=== PATIENT | male | born 1995 | race Caucasian/White ===

== ENCOUNTER 2018-11-11 14:02 | Emergency (ER) | payer SELFPAY ==
[2018-11-11 14:03] VITALS: BP 127/51; PULSE 54; RESP 16; TEMP 36.9; O2SAT 99; BMI 16.1
--- NOTE | 2018-11-11 14:22 | ED.DCSUM_ITS ---
History of Present Illness Chief Complaint: Shortness of Breath Informant: Patient Onset: Days Timing: Intermittent Quality: Shortness of breath Location: Respiratory Current Severity: Mild Maximum Severity: Moderate Worsened by: Nothing Relieved by: None Associated Symptoms: no associated symptoms Narrative: Patient is 23-year-old male who is a smoker of half pack per day who presents with shortness of breath. He has history of asthma. He denies rhinorrhea, con gestion, postnasal drainage. No sore throat. Does have a cough occasionally. Cough is nonproductive. Patient has history of asthma. He does not recall last time he required treatment in the emergency department. He does not have a position. He does not have an inhaler. He denies leg pain, swelling or discoloration. He denies history of PE or DVT. Prior similar symptoms: Yes Recent Illness/Hospitalization: No - Past Medical History (1) History of asthma Status: Acute Past Medical History - Allergies and Home Meds Allergies/Adverse Reactions: Allergies Penicillins Allergy (Verified 11/11/18 14:03) Shortness of breath Primary Care Physician: Care Physician,No Primary [Primary Care Provider] - Prior records reviewed: No - There are none Surgical History: no surgical history Lives: Alone Smoking Status: Current every day smoker Alcohol: None Drugs: None Review of Systems General: Denies: Chills, Fever, Malaise, Sweats ENT: Denies: Bilateral ear pain, Rhinorrhea, Sore throat Cardiovascular: Denies: Chest pain, Palpitations Respiratory: Reports: Dyspnea, Cough. Denies: Sputum, Dyspnea on exertion, Orthopnea, Paroxysmal nocturnal dyspnea Gastrointestinal: Denies: Nausea, Vomiting Musculoskeletal: Denies: Myalgias, Arthralgias, Neck pain, Back pain, Swelling, Extremity Pain, -, - Skin: Denies: Rash, Wounds Allergy: Denies: Uticaria, Swelling of the mouth Physical Exam Vital Signs/Narrative: Vital Signs Temp Pulse Resp BP Pulse Ox 11/11/18 14:03 98.4 F 54 L 16 127/51 H 99 Inital Vital Signs reviewed: Yes General: Well nourished, Well developed, No Acute Distress Head: Normocephalic, Atraumatic Eyes: Perrl, EOMI. Negative for: Pale conjunctiva, Scleral icterus ENT: Moist mucous membranes, No rhinorrhea, TM's clear Neck: Supple, Nontender Cardiovascular: Regular rate, Regular rhythm, No murmurs, Normal S1, Normal S2 Respiratory: No distress, CTA bilaterally, Chest nontender Abdomen: Soft, Nontender, Nondistended, Normal bowel sounds Back: Nontender, Normal Inspection Extremities: Nontender, No edema Skin: Normal color, No rash Neurological: Alert, Oriented x3, Cranial nerves II-XII grossly intact, Normal Strength, Normal Sensation Psychological: Normal affect, Normal Mood Diagnostic/Tx/Re-eval - Medical Decision Making Since exam is unremarkable. Patient is PERC negative. Will write prescription for inhaler since he is presently not wheezing and his vital signs are normal. ED Disposition - Plan for ED Patient: Disposition: Home or Assisted Living Diagnosis: Dyspnea, History of asthma Instructions: ED Dyspnea Prescriptions: Albuterol Inhaler [Ventolin Hfa] 2 puff INHALATION Q4H PRN PRN #1 inhaler PRN Reason: Wheezing Prescription Printed Referrals: Care Physician,No Primary [Primary Care Provider] - Moon Elias [NON-STAFF] - As Needed
== END 2018-11-11 14:46 | disposition home or self-care (01) ==
LOC: ED 14:40
PROVIDERS: Emergency Provider Emergency Medicine
DX: R06.09 Other forms of dyspnea (principal); J45.909 Unspecified asthma, uncomplicated; F17.200 Nicotine dependence, unspecified, uncomplicated; Z79.51 Long term (current) use of inhaled steroids
CPT/HCPCS: 99282

== ENCOUNTER 2019-06-08 08:34 | Emergency (ER) | payer MEDICAID, SELFPAY ==
[2019-06-08 08:35] VITALS: BP 120/80; PULSE 52; RESP 14; TEMP 37.1; O2SAT 100; BMI 15.7
--- NOTE | 2019-06-08 08:45 | ED.VIS.GEN ---
History of Present Illness Chief Complaint: Asthma Informant: Patient Onset: Today Context: Gradual Onset Timing: Continuous Current Severity: Moderate Maximum Severity: Moderate Narrative: The patient presents to the emergency department with cough and shortness of breath. Patient has a history of asthma and does continue to smoke. He states he is not had to use his inhaler in almost 2 years. He was at work today and started to have chest tightness and cough. He felt lightheaded. He states that he rested and it seemed to improve, but then he still had shortness of breath. He states that his boss made him come here. He denies any fevers or chills. He denies any productive sputum. Prior similar symptoms: No Recent Illness/Hospitalization: No Past Medical History - Allergies and Home Meds Allergies/Adverse Reactions: Allergies Penicillins Allergy (Verified 06/08/19 08:35) Shortness of breath Primary Care Physician: Care Physician,No Primary [Primary Care Provider] - Prior records reviewed: Yes Past Medical History: - - Asthma Surgical History: no surgical history Smoking Status: Current every day smoker Review of Systems General: Denies: Chills, Fever, Sweats Eyes: Denies: Visual changes - bilaterally, Diplopia ENT: Denies: Rhinorrhea, Sore throat Cardiovascular: Denies: Chest pain, Palpitations Respiratory: Reports: Dyspnea, Cough. Denies: Dyspnea on exertion Gastrointestinal: Denies: Abdominal pain, Nausea, Vomiting, Diarrhea, Melena, Hematochezia Genitourinary: Denies: Dysuria, Hematuria, Frequency Musculoskeletal: Denies: Back pain, Extremity Pain Skin: Denies: Rash, Wounds Neurological: Denies: Headache, Weakness, Numbness Physical Exam Vital Signs/Narrative: Vital Signs Temp Pulse Resp BP Pulse Ox 06/08/19 08:35 98.7 F 52 L 14 120/80 100 Inital Vital Signs reviewed: Yes General: Well nourished, Well developed, No Acute Distress Head: Normocephalic, Atraumatic Eyes: Perrl, EOMI ENT: Moist mucous membranes, No rhinorrhea Neck: Supple, Nontender Cardiovascular: Regular rate, Regular rhythm, No murmurs Respiratory: No distress, Chest nontender, Wheezing Abdomen: Soft, Nontender, Nondistended, Normal bowel sounds Back: Nontender, Normal Inspection Extremities: Nontender, No edema Skin: Normal color, No rash Neurological: Alert, Oriented x3, Cranial nerves II-XII grossly intact, Normal Strength, Normal Sensation Psychological: Normal affect, Normal Mood Diagnostic/Tx/Re-eval - Medical Decision Making The patient presents with cough and a scant wheeze. He has no focal change in lung sounds. He has no hypoxia or tachypnea. My suspicion is that this is a mild asthma exacerbation. The patient was given prednisone and a DuoNeb. He was also given an inhaler for home use. He is feeling improved. I do feel he is safe for outpatient therapy. Impression 1. Mild asthma exacerbation ED Disposition - Plan for ED Patient: Instructions: ASTHMA, Acute (Adult) Prescriptions: Prednisone [Deltasone] 40 mg PO DAILY #10 tab Prescription Printed Referrals: Care Physician,No Primary [Primary Care Provider] -
[2019-06-08] MEDS: predniSONE 20 MG Tablet 40 MG PO (08:49)
[2019-06-08 08:57] VITALS: PULSE 65; RESP 16
[2019-06-08] MEDS: Ipratropium/Albuterol Sulfate 3 ML AMPUL.NEB INHALATION (08:57)
[2019-06-08 09:29] VITALS: BP 141/66; PULSE 72; RESP 16; O2SAT 99
== END 2019-06-08 09:30 | disposition home or self-care (01) ==
LOC: ED 09:07
PROVIDERS: Emergency Provider Emergency Medicine
DX: J45.901 Unspecified asthma with (acute) exacerbation (principal); F17.200 Nicotine dependence, unspecified, uncomplicated
CPT/HCPCS: 94640; 99283

== ENCOUNTER → 2020-05-09 15:05 | Outpatient (CLI) | payer MEDICAID, SELFPAY ==
[2020-05-09 14:33] VITALS: BMI 15.3
[2020-05-09 16:47] LABS: Absolute Lymphocyte Count 1.71 X10^3/uL (0.83-4.51); Absolute Neutrophil Count 2.5 X10^3/uL (2.0-7.7); Basophil# 0.03 X10^3/uL; Basophil% 0.6 % (0-1); Eosinophil# 0.09 X10^3/uL; Eosinophils% 1.9 % (0-5); Hematocrit 40.2 % (40-54); Hemoglobin 13.5 g/dL (13.0-16.5); Lymphocyte # 1.71 X10^3/ul (4.0); Lymphocyte % 36.4 % (19-41); Mean Corp Hgb Conc 33.6 g/dL (32-36); Mean Corpuscular Hgb 29.8 pg (27.0-32.0); Mean Corpuscular Volume 88.7 fL (80-94); Mean Platelet Vol. 8.7 fl (6.2-12.0); Monocyte# 0.37 X10^3/uL; Monocyte% 7.9 % (0-10); NRBC Flagged by Analyzer 0 % (0-5); Neutrophil # 2.48 X10^3/uL (2.7-7.7); Neutrophil % 52.8 % (47-70); Platelet Count 315 K/mm3 (150-450); RBC Distribution Width CV 12.5 % (11.6-14.6); RBC Distribution Width SD 40.8 fl (35.1-43.9); Red Blood Count 4.53 M/mm3 (4.6-6.2); White Blood Count 4.7 K/mm3 (4.4-11.0)
[2020-05-09 17:02] LABS: ALB/GLOB Ratio 1.5 RATIO (0.9-2.4); AST(SGOT) 10 U/L (15-37); Alanine Aminotransfer ALT/SGPT 31 U/L (16-61); Albumin, Serum 4.4 g/dL (3.2-5.0); Alkaline Phosphatase 46 U/L (45-117); Anion Gap 3 (5-15); BUN 13 mg/dL (7-18); BUN/Creat Ratio 14.9 RATIO (10-20); Chloride 104 mmol/L (98-107); Creatinine, Serum 0.87 mg/dL (0.70-1.30); EST Glomerular Filtration Rate 114 mL/min (>60); Est Glom Filt Rate - Afr Amer 138 mL/min (>60); Globulin 2.9 g/dL (2.2-4.2); Glucose 52 mg/dL (74-106); Potassium 3.9 mmol/L (3.5-5.1); Protein, Total 7.3 g/dL (6.4-8.2); Sodium Level 137 mmol/L (136-145)
== END ==
PROVIDERS: PCP Internal Medicine; Referring Provider Internal Medicine; Visit Provider Internal Medicine
DX: J45.909 Unspecified asthma, uncomplicated (principal); R03.0 Elevated blood-pressure reading, without diagnosis of hypertension
CPT/HCPCS: 36415; 80053; 85025

== ENCOUNTER 2021-07-01 12:19 | Emergency (ER) | payer MEDICAID, SELFPAY ==
[2021-07-01 12:21] VITALS: BP 114/75; PULSE 66; RESP 17; TEMP 37.3; O2SAT 100; BMI 16.9
--- NOTE | 2021-07-01 12:50 | EX.ED.DYSGE1 ---
HPI History of Present Illness Chief Complaint: Flank Pain Informant: patient Onset/Context/Timing Onset: Today Current Severity: Mild Maximum Severity: Moderate Narrative Narrative: Patient presents secondary to right flank pain. Patient states the pain started this morning. He has passed kidney stones in the past but never been evaluated for them. This morning he had some mild nausea with the pain and that prompted his visit to the emergency room. [facility] Medical History (Updated 07/01/21 @ 15:[address] Summer Murdock MD) Asthma Emotional disorder Heart murmur History of kidney stones Seasonal allergies Allergy/AdvReac Type Severity Reaction Status Date / Time Penicillins Allergy Shortness Verified 07/01/21 12:20 of breath Family History Grandmother Colon cancer Other Alcohol abuse Anemia Anxiety Breast cancer COPD (chronic obstructive pulmonary disease) Cancer Liver disease Myocardial infarction Osteoporosis Seizures Social History Smoking Status: Current every day smoker tobacco type: e-cigarettes Electronic Cigarette Use: with nicotine alcohol intake: never substance use type: former substance user and prescription drug what type of physical activity do you participate in: none ROS ROS ED Constitutional Constitutional ED: Denies chills or fever(s) Eyes Eyes: Denies change in vision ENT ENT ED: Denies sore throat Cardiovascular Cardiovascular: Denies chest pain Respiratory/Chest Respiratory/Chest: Denies cough or dyspnea Gastrointestinal Gastrointestinal: Reports abdominal pain and nausea; Denies diarrhea or vomiting Genitourinary Genitourinary ED: Denies dysuria or hematuria Musculoskeletal Musculoskeletal: Reports back pain Integumentary Denies rash Neurologic Neurologic: Denies headache(s) or weakness Allergic/Immunologic Allergic/Immunologic ED: Denies urticaria EXAM Physical Exam Const Vital Signs: 07/01/21 12:21 Temperature 99.2 F H Temperature Source Temporal Pulse Rate 66 Respiratory Rate 17 Blood Pressure 114/75 Blood Pressure Mean 88 Pulse Ox 100 Oxygen Delivery Method Room Air Positive well nourished and well developed General Appearance ED: well developed HEENT Reports moist mucous membranes Eyes PERRL and EOMs intact bilaterally Neck supple Chest Wall inspection of chest normal and palpation of chest normal Resp normal respiratory effort and clear to auscultation bilaterally Cardio regular rate and regular rhythm GI non-tender Auscultation: hypoactive bowel sounds Palpation: soft Back/Spine no CVA tenderness Extremity normal to inspection Neuro oriented x3 Sensorium / Orientation: alert Psych mental status grossly normal Skin no rashes or lesions noted MDM MDM MDM Narrative Medical decision making narrative: Patient given Toradol and Zofran here. Lab work, urinalysis, CT flank ordered. Lab Data Attestation: I reviewed the patient's lab results. Labs: Laboratory Results - last 24 hr 07/01/21 07/01/21 07/01/21 12:59 12:59 13:32 WBC 5.3 RBC 4.40 L Hgb 13.5 Hct 39.4 L MCV 89.5 MCH 30.7 MCHC 34.3 RDW Std Deviation 41.9 RDW Coeff of Al 12.7 Plt Count 243 MPV 8.6 Immature Gran % (Auto) 0.400 Neut % (Auto) 65.6 Lymph % (Auto) 25.1 Ward % (Auto) 7.5 Eos % (Auto) 0.8 Baso % (Auto) 0.6 Absolute Neuts (auto) 3.5 Absolute Lymphs (auto) 1.33 Nucleated RBC % 0 Sodium 140 Potassium 3.8 Chloride 107 Carbon Dioxide 30.0 Anion Gap 3 L BUN 13 Creatinine 0.81 Estim Creat Clear Calc 117.92 Est GFR (MDRD) Af Amer 150 Est GFR (MDRD) Non-Af 124 BUN/Creatinine Ratio 16.1 Glucose 83 Calcium 8.7 Urine Color Yellow Urine Clarity Clear Urine pH 8.0 Ur Specific [place] 1.015 Urine Protein Negative Urine Glucose (UA) Normal Urine Ketones Negative Urine Occult Blood Negative Urine Nitrite Negative Urine Bilirubin Negative Urine Urobilinogen Normal Ur Leukocyte Esterase Negative Urine RBC 0 SEEN Urine WBC 0 SEEN Ur Squamous Epith Cells 0 SEEN Urine Bacteria 0 SEEN Urine Mucus 0 SEEN Radiography Diagnostic Testing: Clinical Impression(s) from Imaging Studies Abdomen/Pelvis CT 07/01/21 13:40 IMPRESSION: No acute findings. Electronically Signed: Garry James, at 14:23 EDT , Treatment and Re-Evaluation Narrative: Lab work and urinalysis unremarkable. CT flank reveals no acute findings. Test results discussed with the patient. He will continue supportive care at home. Discharge Plan Triage Chief Complaint: Flank Pain ED Provider: Summer Murdock Dx/Rx/DC Orders Clinical Impression: Right flank pain Instructions: ED Flank Pain, Uncertain Cause Primary Care Provider: Ron Viveros Referrals: Ron Viveros MD [Primary Care Provider] - 1 Week if not improving Disposition Disposition: Home, Self Care
[2021-07-01] MEDS: 0.9% Normal Saline 1,000 ML 150 ML IV (12:58)
[2021-07-01] MEDS: Ondansetron 4 MG/2 ML Vial IV (12:58)
[2021-07-01] MEDS: Ketorolac 30 MG/ML Syringe IV (12:58)
[2021-07-01 13:06] LABS: Absolute Lymphocyte Count 1.33 X10^3/uL (0.83-4.51); Absolute Neutrophil Count 3.5 X10^3/uL (2.0-7.7); Basophil# 0.03 X10^3/uL; Basophil% 0.6 % (0-1); Eosinophil# 0.04 X10^3/uL; Eosinophils% 0.8 % (0-5); Hematocrit 39.4 % (40-54); Hemoglobin 13.5 g/dL (13.0-16.5); Lymphocyte # 1.33 X10^3/ul (0.83-4.51); Lymphocyte % 25.1 % (19-41); Mean Corp Hgb Conc 34.3 g/dL (32-36); Mean Corpuscular Hgb 30.7 pg (27.0-32.0); Mean Corpuscular Volume 89.5 fL (80-94); Mean Platelet Vol. 8.6 fl (6.2-12.0); Monocyte% 7.5 % (0-10); NRBC Flagged by Analyzer 0 % (0-5); Neutrophil # 3.48 X10^3/uL (2.7-7.7); Neutrophil % 65.6 % (47-70); Platelet Count 243 K/mm3 (150-450); RBC Distribution Width CV 12.7 % (11.6-14.6); RBC Distribution Width SD 41.9 fl (35.1-43.9); White Blood Count 5.3 K/mm3 (4.4-11.0)
[2021-07-01 13:20] LABS: Anion Gap 3 (5-15); BUN 13 mg/dL (7-18); BUN/Creat Ratio 16.1 RATIO (10-20); Calcium,Total 8.7 mg/dL (8.5-10.1); Chloride 107 mmol/L (98-107); Creatinine, Serum 0.81 mg/dL (0.70-1.30); EST Glomerular Filtration Rate 124 mL/min (>60); Est Glom Filt Rate - Afr Amer 150 mL/min (>60); Estimated Creatinine Clearance 117.92 ml/min; Glucose 83 mg/dL (74-106); Potassium 3.8 mmol/L (3.5-5.1); Sodium Level 140 mmol/L (136-145)
--- NOTE | 2021-07-01 13:40 | CT_ITS ---
INDICATION: flank pain EXAMINATION: CT ABDOMEN AND PELVIS WITHOUT CONTRAST - CT Abdomen And Pelvis W/O Contrast Injection TECHNIQUE: Helically acquired images were obtained of the abdomen and pelvis without oral or IV contrast. A radiation dose optimization technique was used for this scan. IV Contrast dosage and agent: None. Oral contrast: None. COMPARISON: None. FINDINGS: Lower thorax: Visualized lungs are clear. Liver: Unremarkable unenhanced appearance. Gallbladder: Nondilated. Spleen: Unremarkable unenhanced appearance. Pancreas: No acute findings. Adrenal glands: Unremarkable. Kidneys: Bilateral extrarenal pelvises. No calculi. No hydronephrosis. Bladder: Somewhat underdistended but no acute findings. GI tract: Sigmoid diverticulosis without CT findings of diverticulitis. No significant bowel dilation. Normal appendix. Peritoneum/mesentery/retroperitoneum: No free air or free fluid. No lymphadenopathy. Pelvis: No free air or free fluid. Vasculature: No abdominal aortic or iliac aneurysm. Bones/soft tissues: No acute fracture or subluxation. No destructive osseous lesions. Soft tissues are unremarkable. CT/Abdomen/Pelvis without Cont IMPRESSION: No acute findings. Electronically Signed: Garry James, at 14:23 EDT ,
[2021-07-01 13:41] LABS: Bacteria 0 SEEN /hpf (None Seen); Mucous, Urine 0 SEEN /hpf (<or=2+); Red Blood Cells-Urine 0 SEEN /hpf (0-5); Squamous Epithelial Cells - UA 0 SEEN /hpf (0-5); White Blood Cells 0 SEEN /hpf (0-5)
[2021-07-01 13:43] LABS: Color, Urine Yellow (Yellow); Glucose, Dipstick Normal (Normal); Ketone-Dipstick Negative (Negative); Leukocyte Esterase-Dipstick Negative /ul (Negative); Nitrite-Dipstick Negative (Negative); Occult Blood-Urine Negative /ul (Negative); Protein-Dipstick Negative (Negative); Specific Gravity, Urine 1.015 (1.002-1.030); Urine Bilirubin Dipstick Negative (Negative); Urine Clarity Clear (Clear); Urine Urobilinogen Normal (Normal)
[2021-07-01 15:35] VITALS: PULSE 78; RESP 16; O2SAT 99
== END 2021-07-01 15:36 | disposition home or self-care (01) ==
PROVIDERS: Emergency Provider Emergency Medicine; PCP Internal Medicine; Visit Provider Emergency Medicine
DX: R10.9 Unspecified abdominal pain (principal); F17.290 Nicotine dependence, other tobacco product, uncomplicated; J45.909 Unspecified asthma, uncomplicated; R01.1 Cardiac murmur, unspecified
CPT/HCPCS: 74176; 80048; 81001; 85025; 96361; 96374; 96375; 99283; J7030; A4216; J2405

== ENCOUNTER 2021-07-31 11:09 | Emergency (ER) | payer MEDICAID, SELFPAY ==
[2021-07-31 11:11] VITALS: BP 107/61; PULSE 56; RESP 14; TEMP 36.5; O2SAT 98; BMI 16.1
--- NOTE | 2021-07-31 11:27 | EDS_ITS ---
HPI History of Present Illness Chief Complaint: Nausea/Vomiting Informant: patient Narrative Narrative: Presents with nausea and vomiting diarrhea started 6 AM this morning 2 bouts of vomiting one diarrhea. Nonbloody. Denies abdominal pain. Tried drinking water however threw this up. He try to call off work need a work note. He does admit to medical marijuana use for the past year. He has had cannabis induced emesis previously however this is different. He ate [place] food yesterday this was not shared. Denies urinary symptoms. Allergies to penicillin. Denies recent antibiotic use. Prior similar symptoms: Yes PFSH PFSH Medical History (Updated 07/31/21 @ 12:[address] Scott Puckett DO) Asthma Emotional disorder Heart murmur History of kidney stones Seasonal allergies Home Medications ondansetron 4 mg PO Q6H PRN #10 tab 07/31/21 [Rx Last Taken Unknown] Allergy/AdvReac Type Severity Reaction Status Date / Time Penicillins Allergy Shortness Verified 07/31/21 11:12 of breath Family History Grandmother Colon cancer Other Alcohol abuse Anemia Anxiety Breast cancer COPD (chronic obstructive pulmonary disease) Cancer Liver disease Myocardial infarction Osteoporosis Seizures Social History Smoking Status: Current every day smoker tobacco type: e-cigarettes Electronic Cigarette Use: with nicotine alcohol intake: never substance use type: former substance user and prescription drug what type of physical activity do you participate in: none ROS ROS ED Constitutional Constitutional ED: Denies chills, fever(s) or sweats Eyes Eyes: Denies change in vision ENT ENT ED: Denies dysphagia or sore throat Cardiovascular Cardiovascular: Denies chest pain, leg edema, palpitations or racing heartbeat Respiratory/Chest Respiratory/Chest: Denies cough, dyspnea or dyspnea on exertion Gastrointestinal Gastrointestinal: Reports diarrhea, nausea and vomiting; Denies abdominal pain Genitourinary Genitourinary ED: Denies dysuria, hematuria or urinary frequency Musculoskeletal Musculoskeletal: Denies back pain, extremity pain or neck pain Integumentary Denies rash or wounds Neurologic Neurologic: Denies headache(s), paresthesias or weakness EXAM Physical Exam Const Vital Signs: 07/31/21 11:11 Temperature 97.7 F L Temperature Source Temporal Pulse Rate 56 L Respiratory Rate 14 Blood Pressure 107/61 Blood Pressure Mean 76 Pulse Ox 98 Oxygen Delivery Method Room Air Positive well nourished and well developed General Appearance ED: well developed and NAD HEENT Reports moist mucous membranes normocephalic and atraumatic Eyes PERRL, EOMs intact bilaterally and conjunctivae normal General Eye ED: Yes normal appearance of both eyes Neck no lymphadenopathy and supple General: Negative for tenderness Chest Wall Chest: Negative for tenderness Resp normal respiratory effort and normal air movement Effort and Inspection: symmetric chest movement; Negative for respiratory distress Cardio regular rate, regular rhythm and no murmurs Peripheral Pulses: pulses 2+ throughout GI normal to inspection, nondistended, normoactive bowel sounds and non-tender Palpation: Negative for guarding or rebound tenderness present Back/Spine no CVA tenderness and no thoracic nor lumbar tenderness Extremity normal to inspection General Extremety ED: Negative for edema or tenderness General Extremity: Negative for edema Neuro oriented x3 and no sensory deficits noted Sensorium / Orientation: awake and alert Skin no rashes or lesions noted and no wounds MDM MDM MDM Narrative Medical decision making narrative: Patient nontoxic vital signs stable nonsurgical abdomen. Patient given Zofran able tolerate p.o. challenge no emesis after treatment. Prescription Zofran sent to his pharmacy. Work note given. All questions answered. Discharge Plan Triage Chief Complaint: Nausea/Vomiting ED Provider: Scott Puckett Dx/Rx/DC Orders Clinical Impression: Nausea, vomiting and diarrhea, Gastroenteritis Instructions: ED Gastroenteritis, Noninfectious Prescriptions: New ondansetron 4 mg tablet,disintegrating 4 mg PO Q6H PRN (Reason: nausea and vomiting) Qty: 10 RF: 0 Primary Care Provider: Ron Viveros Referrals: Ron Viveros MD [Primary Care Provider] - 3-5 Days if not improving Disposition Disposition: Home, Self Care Discharge Date/Time: 07/31/21 12:26
[2021-07-31] MEDS: Ondansetron ODT 4 MG Tablet 8 MG PO (11:32)
== END 2021-07-31 12:26 | disposition home or self-care (01) ==
LOC: ED 12:14
PROVIDERS: Emergency Provider Emergency Medicine; PCP Internal Medicine; Visit Provider Emergency Medicine
DX: K52.9 Noninfective gastroenteritis and colitis, unspecified (principal); Z80.0 Family history of malignant neoplasm of digestive organs; F17.290 Nicotine dependence, other tobacco product, uncomplicated; F12.90 Cannabis use, unspecified, uncomplicated; J45.909 Unspecified asthma, uncomplicated
CPT/HCPCS: 99283

== ENCOUNTER 2024-05-26 07:39 | Emergency (ER) | payer MEDICAID, SELFPAY ==
[2024-05-26 07:40] VITALS: BP 92/54; PULSE 74; RESP 16; TEMP 36.9; O2SAT 99; BMI 15.5
--- NOTE | 2024-05-26 07:49 | ED.RN ---
PT STATES HE TESTED POS FOR FLU A ON THURSDAY, HAS BEEN VOMITING SINCE THURSDAY. PT STATES HE SMOKES MARIJUANA EVERY DAY.
--- NOTE | 2024-05-26 08:01 | EDS_ITS ---
HPI History of Present Illness Chief Complaint: Cold Sx Informant: patient and family Narrative Narrative: 29-year-old male presenting to the emergency room with vomiting with concerns for dehydration. Patient states that Thursday evening he began to feel achy by T day was experiencing fevers. He tested positive for influenza A. He notes that despite Zofran he has had continued vomiting. No diarrhea. He states he is urinating normally. He notes continued body aches has been using Aleve. He notes a cough and now a sore throat. [facility] Medical History (Updated 05/26/24 @ 08:[address] Aleks Suero, DO) Heart murmur History of kidney stones Emotional disorder Seasonal allergies Asthma Home Medications ?Medication ?Instructions ?Recorded ?Last Taken ?Type ondansetron 4 mg disintegrating 4 mg PO Q6H PRN nausea and 07/31/21 Unknown Rx tablet vomiting #10 tabs Allergy/AdvReac Type Severity Reaction Status Date / Time Penicillins Allergy Shortness Verified 05/26/24 07:40 of breath Family History Grandmother Colon cancer Other Alcohol abuse Anemia Anxiety Breast cancer COPD (chronic obstructive pulmonary disease) Cancer Liver disease Myocardial infarction Osteoporosis Seizures Social History Smoking Status: Current every day smoker tobacco type: e-cigarettes Electronic Cigarette Use: with nicotine alcohol intake: never substance use type: former substance user and prescription drug what type of physical activity do you participate in: none ROS ROS ED Constitutional Constitutional ED: Reports chills and fever(s); Denies weight loss Eyes Eyes: Denies change in vision or diplopia ENT ENT ED: Reports rhinorrhea and sore throat; Denies ear pain Cardiovascular Cardiovascular: Denies chest pain, orthopnea, palpitations or racing heartbeat Respiratory/Chest Respiratory/Chest: Reports cough; Denies dyspnea or orthopnea Gastrointestinal Gastrointestinal: Reports nausea and vomiting; Denies abdominal pain or diarrhea Genitourinary Genitourinary ED: Denies dysuria, hematuria or urinary frequency Musculoskeletal Musculoskeletal: Reports myalgias; Denies arthralgias Integumentary Denies abscess or rash Neurologic Neurologic: Reports headache(s); Denies weakness Psychiatric Psychiatric: Denies anxiety, depression, suicidal ideation or suicidal thoughts Endocrine Endocrinology: Denies polydipsia, polyphagia or polyuria Allergic/Immunologic Allergic/Immunologic ED: Denies mouth swelling, tongue swelling or urticaria EXAM Physical Exam Const Vital Signs: 05/26/24 07:40 Temperature 98.4 F Temperature Source Oral Pulse Rate 74 Respiratory Rate 16 Blood Pressure 92/54 L Blood Pressure Mean 66 Pulse Ox 99 Oxygen Delivery Method Room Air Positive well nourished and well developed General Appearance ED: well developed HEENT Reports normocephalic, head/scalp atraumatic and moist mucous membranes Eyes PERRL and EOMs intact bilaterally Neck no lymphadenopathy, supple and no JVD Resp normal respiratory effort and clear to auscultation bilaterally Cardio regular rate, regular rhythm and no murmurs Rate: other Other Details: Patient has less than 2-second capillary refill of his fingers GI normal to inspection, nondistended, normoactive bowel sounds and non-tender Palpation: soft Back/Spine no CVA tenderness and normal ROM Extremity normal to inspection General Extremety ED: Negative for edema General Extremity: Negative for edema Neuro oriented x3 and CN's II-XII intact bilaterally Sensorium / Orientation: alert Motor Exam: strength 5/5 throughout Psych mental status grossly normal Mood & Affect: Negative for depressed or tearful Skin no rashes or lesions noted and no wounds MDM MDM MDM Narrative Medical decision making narrative: Differential diagnosis includes but not limited to viral syndrome vomiting dehydration acute kidney injury electrolyte abnormalities pneumonia pharyngitis Based on the patient's symptomology he received a liter of IV fluids. A BMP was obtained. Normal electrolytes. CO2 level is 25 creatinine 0.91 anion gap is 7. Glucose is 98. Patient has been tolerating ice. He will be discharged home with continued supportive care with continued oral hydration. He has Zofran at home. History & Record Review Discussion w/independent historian: Patient and Family Lab Data Attestation: I reviewed the patient's lab results. Labs: Laboratory Results - last 24 hr 05/26/24 08:02 Sodium 140 Potassium 3.6 Chloride 108 H Carbon Dioxide 25.0 Anion Gap 7 BUN 16 Creatinine 0.91 Estim Creat Clear Calc 93.82 Est GFR (MDRD) Af Amer 127 Est GFR (MDRD) Non-Af 105 BUN/Creatinine Ratio 17.5 Glucose 98 Calcium 8.9 Discharge Plan Triage Chief Complaint: Cold Sx ED Provider: Aleks Suero Dx/Rx/DC Orders Clinical Impression: Influenza A, Vomiting Instructions: Dehydration, ED Influenza (Adult) Prescriptions: No Action ondansetron 4 mg tablet,disintegrating 4 mg PO Q6H PRN (Reason: nausea and vomiting) Qty: 10 0RF Primary Care Provider: Ron Viveros Referrals: Ron Viveros MD [Primary Care Provider] - As Needed Print Language: Luxembourgish Disposition Disposition: Home, Self Care
[2024-05-26] MEDS: 0.9% Normal Saline (1000mL) 1,000 ML 1000 ML IV (08:12)
[2024-05-26] MEDS: Ondansetron 4 MG/2 ML Vial IV (08:13)
[2024-05-26 08:27] LABS: Anion Gap 7 (5-15); BUN 16 mg/dL (7-18); BUN/Creat Ratio 17.5 RATIO (10-20); Calcium,Total 8.9 mg/dL (8.5-10.1); Chloride 108 mmol/L (98-107); Creatinine, Serum 0.91 mg/dL (0.70-1.30); EST Glomerular Filtration Rate 105 mL/min (>60); Est Glom Filt Rate - Afr Amer 127 mL/min (>60); Estimated Creatinine Clearance 93.82 ml/min; Glucose 98 mg/dL (74-106); Potassium 3.6 mmol/L (3.5-5.1); Sodium Level 140 mmol/L (136-145)
[2024-05-26 09:16] VITALS: BP 98/59; PULSE 71; RESP 16; TEMP 37.2; O2SAT 98
== END 2024-05-26 09:18 | disposition home or self-care (01) ==
PROVIDERS: Emergency Provider Emergency Medicine; PCP Internal Medicine; Visit Provider Emergency Medicine
DX: J10.1 Influenza due to other identified influenza virus with other respiratory manifestations (principal); F17.290 Nicotine dependence, other tobacco product, uncomplicated; J45.909 Unspecified asthma, uncomplicated; R51.9 Headache, unspecified; R11.10 Vomiting, unspecified
CPT/HCPCS: 80048; 96361; 96374; 99283; A4216; J2405

== ENCOUNTER 2024-12-27 09:13 | Emergency (ER) | payer MEDICAID, SELFPAY ==
[2024-12-27] VITALS (10 sets, daily range): BP systolic 106–128; BP diastolic 67–92; PULSE 63–88; RESP 14–19; TEMP 36.6–37.2; O2SAT 96–100; BMI 21.9
--- NOTE | 2024-12-27 10:04 | EDS_ITS ---
HPI History of Present Illness Chief Complaint: Dental Informant: patient Onset/Context/Timing Onset: Weeks (1) Context: Gradual Onset Timing: Continuous Quality: Sharp Location: Left upper and lower jaw Worsened by: Opening his jaw Relieved by: - (Nothing) Associated Symptoms Assocated Symptom - Dental: jaw swelling; Negative for fever, face swelling, cold sensitivity or hot sensitivity Narrative Narrative: Patient presents with dental pain that has been getting worse over the past week. Patient states he is currently on clindamycin for dental infection. Patient states he has been taking this with no improvement. Patient describes his pain as sharp. Patient states it is over the left upper and lower jaw. Patient admits to some swelling of his left lower jaw. Patient states he is having difficulty opening his jaw. Patient denies any hot or cold sensitivity. Patient denies any fevers or chills. [facility] Medical History (Updated 12/27/24 @ 13:[address] Eduardo Arora DO) Heart murmur History of kidney stones Emotional disorder Seasonal allergies Asthma Home Medications ?Medication ?Instructions ?Recorded ?Last Taken ?Type ondansetron 4 mg disintegrating 4 mg PO Q6H PRN nausea and 07/31/21 Unknown Rx tablet vomiting #10 tabs azithromycin 250 mg tablet 250 mg PO UD 12/27/24 Unkno wn History clindamycin HCl 300 mg capsule 300 mg PO Q8 12/27/24 U nknown History cyclobenzaprine 5 mg tablet 5 mg PO BID 12/27/24 Unkno wn History Allergy/AdvReac Type Severity Reaction Status Date / Time Penicillins Allergy Shortness Verified 12/27/24 09:13 of breath Family History Grandmother Colon cancer Other Alcohol abuse Anemia Anxiety Breast cancer COPD (chronic obstructive pulmonary disease) Cancer Liver disease Myocardial infarction Osteoporosis Seizures Social History Smoking Status: Heavy Smoker (>10/day) Electronic Cigarette Use: with nicotine alcohol intake: never substance use type: former substance user and prescription drug what type of physical activity do you participate in: none ROS ROS ED Constitutional Constitutional ED: Denies chills or fever(s) Eyes Eyes: Denies blurry vision or change in vision ENT ENT ED: Reports sore throat; Denies rhinorrhea Cardiovascular Cardiovascular: Denies chest pain or palpitations Respiratory/Chest Respiratory/Chest: Reports dyspnea; Denies cough Gastrointestinal Gastrointestinal: Denies nausea or vomiting Genitourinary Genitourinary ED: Denies dysuria or hematuria Musculoskeletal Musculoskeletal: Reports neck pain; Denies back pain Integumentary Denies abscess or rash Neurologic Neurologic: Reports headache(s); Denies weakness Allergic/Immunologic Allergic/Immunologic ED: Denies mouth swelling or urticaria EXAM Physical Exam Const Vital Signs: 12/27/24 09:14 12/27/24 09:48 12/27/24 10:48 Temperature 99 F 98.4 F 98.4 F Temperature Source Temporal Oral Oral Pulse Rate 83 88 63 Respiratory Rate 14 16 18 Blood Pressure 127/77 H 128/80 H 118/79 Blood Pressure Mean 93 96 92 Pulse Ox 98 100 100 Oxygen Delivery Method Room Air Room Air Room Air 12/27/24 11:00 12/27/24 12:00 Temperature 98.4 F 98.5 F Temperature Source Oral Oral Pulse Rate 66 71 Respiratory Rate 18 18 Blood Pressure 111/78 115/87 H Blood Pressure Mean 89 96 Pulse Ox 96 98 Oxygen Delivery Method Room Air Room Air Positive well nourished and well developed General Appearance ED: well developed and NAD HEENT HEENT Narrative: Oropharynx was poorly visualized. However, the visualized portion of the oropharynx showed some mild erythema. There is no exudates noted. Teeth and Gingiva: caries Neck supple and no JVD General: tenderness; Negative for anterior neck swelling or submandibular swelling Resp normal respiratory effort and clear to auscultation bilaterally Cardio regular rate and regular rhythm Neuro oriented x3, CN's II-XII intact bilaterally, moves all extremities, no focal motor deficits and no sensory deficits noted Sensorium / Orientation: alert Motor Exam: strength 5/5 throughout Psych mental status grossly normal MDM MDM MDM Narrative Medical decision making narrative: Differential diagnosis includes subungual abscess, peritonsillar abscess, pharyngitis, and infected dental caries. CT scan of the soft tissue neck will be obtained to assess for dental abscess and peritonsillar abscess. Rapid strep will be obtained to assess for strep pharyngitis. CBC will be obtained to assess for leukocytosis and anemia. Basic metabolic profile will be obtained to assess for electrolyte abnormality and renal function. Lab Data Attestation: I reviewed the patient's lab results. Lab results narrative: CBC was reviewed and was within normal limits. Basic metabolic profile was reviewed and was within normal limits. Labs: Laboratory Results - last 24 hr 12/27/24 10:19 WBC 10.5 RBC 5.14 Hgb 15.8 Hct 44.9 MCV 87.4 MCH 30.7 MCHC 35.2 RDW Std Deviation 39.8 RDW Coeff of Al 12.5 Plt Count 330 MPV 8.4 Immature Gran % (Auto) 0.800 Neut % (Auto) 86.5 H Lymph % (Auto) 8.9 L [place] % (Auto) 3.5 Eos % (Auto) 0.0 Baso % (Auto) 0.3 Absolute Neuts (auto) 9.1 H Absolute Lymphs (auto) 0.93 Nucleated RBC % 0 Sodium 142 Potassium 3.7 Chloride 102 Carbon Dioxide 24.4 Anion Gap 16 H BUN 10 Creatinine 0.97 Estim Creat Clear Calc 124.60 Est GFR (MDRD) Non-Af 109 BUN/Creatinine Ratio 10.4 Glucose 86 Calcium 10.6 Radiography Diagnostic Testing: Clinical Impression(s) from Imaging Studies Soft Tissue Neck CT 12/27/24 11:01 IMPRESSION: Abnormal appearance of the floor of the mouth as described. [place]'s angina should be ruled out. Red Alert: ? Lud[place] angina The critical information above was relayed directly by me by telephone to Eduardo Arora on 12/27/2024 at 11:26 am with readback verification. Reading Location: [facility] CT scan of the soft tissue neck was obtained. There is heterogeneous appearance of the floor of the mouth with areas of decreased attenuation and possible early abscess. [place] angina should be ruled out. This was interpreted by the radiologist and was also independently reviewed by myself. Treatment and Re-Evaluation Narrative: Patient was given IV fluids, Decadron, morphine, and clindamycin. Patient was given a dose of Zofran. Patient was advised of his findings. Patient initially requested to go to [facility]. However, they are unable to take care of the patient there. Patient is agreeable to go to [facility]. Case was discussed with Dr. Bravo. She accepted the patient to be transferred there. Patient understood and was agreeable with the plan. All questions were answered. Discharge Plan Triage Chief Complaint: Dental ED Provider: Eduardo Arora Dx/Rx/DC Orders Clinical Impression: [place] angina, Odontalgia, Elevated blood pressure reading Prescriptions: No Action ondansetron 4 mg tablet,disintegrating 4 mg PO Q6H PRN (Reason: nausea and vomiting) Qty: 10 0RF clindamycin HCl 300 mg capsule 300 mg PO Q8 azithromycin 250 mg tablet 250 mg PO UD cyclobenzaprine 5 mg tablet 5 mg PO BID Primary Care Provider: Ron Viveros Referrals: Ron Viveros MD [Primary Care Provider] - Print Language: Serbian Disposition Disposition: Acute Care Hospital Discharge Location: [facility] [place]
[2024-12-27] MEDS: 0.9% Normal Saline (1000mL) 1,000 ML 1000 ML IV (10:23)
[2024-12-27 10:31] LABS: Hematocrit 44.9 % (40-54); Hemoglobin 15.8 g/dL (13.0-16.5); Immature Granulocytes Count 0.080 X10^3/uL (0.0-0.0); Mean Corp Hgb Conc 35.2 g/dL (32-36); Mean Corpuscular Volume 87.4 fL (80-94); Mean Platelet Vol. 8.4 fl (6.2-12.0); NRBC Flagged by Analyzer 0 % (0-5); Platelet Count 330 K/mm3 (150-450); RBC Distribution Width CV 12.5 % (11.6-14.6); RBC Distribution Width SD 39.8 fl (35.1-43.9); Red Blood Count 5.14 M/mm3 (4.6-6.2); White Blood Count 10.5 K/mm3 (4.4-11.0)
[2024-12-27] MEDS: Clindamycin 600 MG/50 ML BAG 100 MG IV (10:39)
--- NOTE | 2024-12-27 11:01 | CT_ITS ---
PROCEDURE: SOFT TISSUE NECK WITH CONTRAST 12/27/2024 REASON FOR EXAM: TRISMUS Mouth pain. Patient is currently on antibiotics. TECHNIQUE: Procedure Code: CTNEW Modality: CT Procedure: SOFT TISSUE NECK WITH CONTRAST CONTRAST: Isovue 370 VOLUME: 100 mL One or more dose reduction techniques were used (e.g., Automated exposure control, adjustment of the mA and/or kV according to patient size, use of iterative reconstruction technique). RADIATION DOSE SUMMARY: CTDlvol: 10.25 mGy DLP: 302.23 mGycm COMPARISON: None FINDINGS: Airway: Midline and patent. Salivary glands: Unremarkable. Heterogeneous appearance of the floor of the mouth with areas of decreased attenuation and possible early breakdown and early abscess formation. [place]'s angina should be ruled out. Lymph nodes: Mild reactive enlargement of multiple cervical lymph nodes. Thyroid: Unremarkable. Vasculature: Carotid arteries and internal jugular veins are unremarkable. Orbits: Unremarkable at visualized levels. Paranasal sinuses and mastoids: 1 cm polyp in the medial inferior aspect of the right maxillary sinus. Lung apices: Unremarkable Upper mediastinum: Unremarkable Bones: Unremarkable. Other: CT/Soft Tissue Neck WITH Contrast IMPRESSION: Abnormal appearance of the floor of the mouth as described. [place]'s angina sh ould be ruled out. Red Alert: ? Lud[place]igs angina The critical information above was relayed directly by me by telephone to Eduardo Merrill on 12/27/2024 at 11:26 am with readback verification. Reading Location: [id number]
[2024-12-27 11:26] LABS: Anion Gap 16 (5-15); BUN 10 mg/dL (4-19); BUN/Creat Ratio 10.4 RATIO (10-20); Calcium,Total 10.6 mg/dL (7.6-11.0); Carbon Dioxide 24.4 mmol/L (21.0-32.0); Chloride 102 mmol/L (98-108); Estimated Creatinine Clearance 124.60 ml/min (50-250); Glucose 86 mg/dL (70-99); Potassium 3.7 mmol/L (3.3-5.1)
== END 2024-12-27 17:04 | disposition short-term general hospital (02) ==
PROVIDERS: Emergency Provider Emergency Medicine; PCP Internal Medicine; Visit Provider Emergency Medicine
DX: K12.2 Cellulitis and abscess of mouth (principal); F17.210 Nicotine dependence, cigarettes, uncomplicated; R03.0 Elevated blood-pressure reading, without diagnosis of hypertension; K08.89 Other specified disorders of teeth and supporting structures; J45.909 Unspecified asthma, uncomplicated; R51.9 Headache, unspecified; M54.2 Cervicalgia; R06.00 Dyspnea, unspecified
CPT/HCPCS: 70491; 80048; 85025; 96361; 96365; 96375; 99284; Q9967; A4216; J2405

== ENCOUNTER 2025-01-20 19:06 | Emergency (ER) | payer MEDICAID, SELFPAY ==
[2025-01-20 19:07] VITALS: BP 107/70; PULSE 64; RESP 16; TEMP 36.9; O2SAT 100; BMI 15.6
--- NOTE | 2025-01-20 19:10 | RAD_ITS ---
PROCEDURE: HAND MIN 3 VIEWS 01/20/2025 REASON FOR EXAM: TRAUMA, SWELLING TECHNIQUE: Procedure Code: ANISA Modality: DX Procedure: HAND MIN 3 VIEWS Laterality: Left COMPARISON: None available. FINDINGS: Bones: There are comminuted and displaced fractures of the left 4th and 5th distal metacarpals. Joints: Normal alignment. Joint spaces preserved. No arthropathic features. Soft tissues: Soft tissue swelling over the medial left palm. RAD/Hand Min 3 Views IMPRESSION: Comminuted and displaced fractures of the left 4th and 5th distal metacarpals w ith associated soft tissue swelling. Reading [facility]
--- OUTSIDE RECORDS SUMMARY | 2025-01-20 20:50 | XMS RPT_ITS | CCD ---
Author Organization [facility] Care Team Providers Care Information Systems Audit Manager Name Role Phone NO, DOCTOR ON Consulting Unavailable NO, DOCTOR ON Referring Unavailable HARVEY RAMOS DO Admitting Unavailable HARVEY RAMOS DO Primary Care Unavailable HARVEY RAMOS DO Attending Unavailable BROWN, DOCTOR ON Consulting Unavailable JOSSELYN CORDERO Admitting Unavailable JOSSELYN CORDERO Primary Care Unavailable JOSSELYN CORDERO Attending Unavailable PHIL DALEY Admitting Unavailable THUYPHIL OSORIO Primary Care Unavailable PHIL DALEY Attending Unavailable Rosa Benz Attending Unavailab le Unavailable Primary Care Provider Unavailabl e Unavailable Primary Care Provider Unavailabl e Unavailable Primary Care Provider Unavailabl BRITTANY Whiting Primary Care Unavailable SARTHAK BAILEY Referring Unavailable SARTHAK BAILEY Attending Unavailable LYNN DIAZ, DR SARTHAK Jones Attending Camelia collado Unavailable Primary Care Provider Unavailkalina Viveros MD, Dr. Velasquez Primary Care Provider Dr. Halima Arora DO Emergency Provider [phone] ADELINE SCHRADER Attending Unavailable MARCELLE FLORES Admitting Unavailable HALIMA ANDRADE Referring Unavailable NATALI PARRISH Attending Unavailable MIKE MONTES Consulting Unavailable Ron Viveros Primary Care Unavailable Aleks Suero Attending Unavailable Halima Arora Attending Unavailable Ron Viveros Primary Care Unavailable Allergies Allergy Classification Reported Allergen(s) Allergy Type Date of Onset Reaction(s) Facility (1 source) Penicillin Drug Allergy [facility] Repository (4 sources) Penicillins; Translations: [PENICILLINS] Drug allergy (disorder) 2 [facility] Repository (8 sources) Cephalosporins (Antibiotic); Translations: [CEPHALOSPORINS] Drug Allergy 2 Rash [facility] Work Phone: (10 sources) House dust mite; Translations: [DUST MITES] Allergy to substance 3 Other: See Comments [facility] (6 sources) Penicillins Drug Allergy 2 Rash [facility] (2 sources) Cephalosporins (Antibiotic) Drug Allergy 2 Rash [facility] Work Phone: (2 sources) Penicillins Drug Allergy 2 Rash [facility] (1 source) Dexamethasone Drug Allergy 5 [facility] Comment on above: Red streaks up from IV site after receiving Morphine and Decadron (1 source) Morphine Drug Allergy 5 [facility] Comment on above: Pt developed red str eaks up from IV site after receiving morphine and decadron (1 source) Penicillins Allergy to substance 5 Shortness of breath [facility] (2 sources) Clindamycin; Translations: [CLINDAMYCIN] Drug Allergy 5 Intolerance [facility] (1 source) Dexamethasone Drug Allergy 5 [facility] Repository (1 source) Morphine Drug Allergy 5 [facility] Repository Medications Current Medications Medication Drug Class(es) Dates Sig (Normalized) Sig (Original) azithromycin 250 mg oral tablet (3 sources) Macrolide Antimicrobial Start: 12-27-2024 Azithromycin 250 mg tablet Active 250 mg PO DIRECTED December 27, 2024 12:00am Start: 12-26-2024 take 2 tablets by [facility] once daily, then take 1 tablet by mouth once daily azithromycin (ZITHROMAX Z-BARRINGTON) 250 mg tablet Take 2 tablets by mouth once daily for 1 day, then 1 tablet once daily for 4 days 6 tablet 12/26/2024 Suspended clindamycin 300 mg oral capsule (1 source) Lincosamide Antibacterial Start: 12-27-2024 take 1 capsule by mouth every eight hours Clindamycin Hcl 300 mg capsule Active 300 mg PO EVERY 8 HOURS December 27, 2024 12:00am cyclobenzaprine hydrochloride 5 mg oral tablet (2 sources) Muscle Relaxant Start: 12-27-2024 take 1 tablet by mouth twice daily Cyclobenzaprine 5 mg tablet Active 5 mg PO TWICE A DAY December 27, 2024 12:00am take 5 mg by mouth e very twelve hours as needed cyclobenzaprine (FLEXERIL) 10 mg tablet Take 5 mg by mouth two times a day as needed for muscle spasm or pain. Suspended oseltamivir 75 mg oral capsule (2 sources) Neuraminidase Inhibitor Start: 05-24-2024 End: 05-29-2024 take 1 capsule by mouth twice daily oseltamivir (TAMIFLU) 75 mg capsule Indications: URI, acute Take 1 capsule by mouth two times a day for 5 days. 10 capsule 05/24/2024 05/29/2024 Active Completed/Discontinued Medications Medication Drug Class(es) Dates Sig (Normalized) Sig (Original) [id number] 200 actuat albuterol 0.09 mg/actuat metered dose inhaler (18 sources) beta2-Adrenergic Agonist Start: 01-29-2015 take 2 puff(s) by inhalation every four hours as needed for wheezing albuterol HFA (PROVENTIL HFA, VENTOLIN HFA) 90 mcg/actuation inhaler Inhale 2 Puffs as instructed every 4 hours as needed. FOR WHEEZING AND SHORTNESS OF BREATH. 1 Inhaler 1 01/29/2015 Suspended Start: 05-19-2014 End: 05-09-2020 Albuterol Sulfate 1 INHALER inhaler Discontinued 2 NMA INHALATION EVERY 4 HOURS NEEDED as needed for Wheezing 1 0 November 11, 2018 12:00am May 09, 2020 3:30pm Start: 07-07-2013 take 2 puff(s) by in halation every four hours as needed albuterol 90 mcg/actuation aero Inhale 2 Puffs as instructed every 4 hours as needed. 1 Inhaler 0 07/07/2013 Suspended Comment on above: Inhale 2 Puffs as in structed every 4 hours as needed. Inhale 2 Puffs as in structed every 4 hours as needed. FOR WHEEZING AND SHORTNESS OF BREATH. benzonatate 200 mg oral capsule (1 source) Non-narcotic Antitussive Start: 4 End: 2 take 1 capsule by mouth every eight hours as needed Benzonatate (TESSALON) 200 mg capsule Take 200 mg by mouth three times daily as needed for Cough. 30 capsule 1 07/18/2013 12/25/2021 Discontinued Comment on above: Take 200 mg by mouth three times daily as needed for Cough. cannabidiol, CBD, (CANNABIDIOL ORAL) (8 sources) cannabidiol, CBD , (CANNABIDIOL ORAL) Take by mouth. Medical marijuana Suspended cannabidiol, CBD , (CANNABIDIOL ORAL) Take by mouth. Medical marijuana Active cannabidiol, CBD , (CANNABIDIOL ORAL) Take by mouth. Medical marijuana 0 Active Comment on above: Take by mouth. Medic al marijuana [id number] 0.3 ml EPINEPHrine 1 mg/ml auto-injector (1 source) alpha-Adrenergic Agonist, beta-Adrenergic Agonist, Catecholamine Start: End: EPINEPHrine 0.3 mg/0.3 mL (1:1,000) PnIj Inject 0.3 mL subcutaneously as needed. 2 Each 0 05/21/2012 12/25/2021 Discontinued Comment on above: Inject 0.3 mL subcut aneously as needed. fluticasone propionate 0.05 mg/actuat metered dose nasal spray (1 source) Corticosteroid Start: End: take 1-2 spray(s) nasal route once daily fluticasone 50 mcg/actuation nasal spray Use 1-2 Sprays in each nostril once daily. 1 Bottle 11 06/07/2012 12/25/2021 Discontinued Comment on above: Use 1-2 Sprays in ea ch nostril once daily. ibuprofen 600 mg oral tablet (1 source) Nonsteroidal Anti-inflammatory Drug Start: End: take 1 tablet by mouth every six hours as needed ibuprofen 600 mg tablet Take 1 tablet by mouth every 6 hours as needed for Pain. 20 tablet 0 07/10/2013 12/25/2021 Discontinued Comment on above: Take 1 tablet by shana every 6 hours as needed for Pain. loratadine 10 mg oral tablet (1 source) Start: End: take 1 tablet by mouth once daily as needed loratadine (CLARITIN) 10 mg tablet Take 1 tablet by mouth once daily as needed (for itching, sneezing or runny nose). 30 tablet 11 06/07/2012 12/25/2021 Discontinued Comment on above: Take 1 tablet by shana th once daily as needed (for itching, sneezing or runny nose). ondansetron 4 mg disintegrating oral tablet (7 sources) Serotonin-3 Receptor Antagonist Start: take 1 tablet by mouth every eight hours as needed ondansetron orally disintegrating (ZOFRAN ODT) 4 mg disintegrating tablet Take 1 tablet by mouth every 8 hours as needed. 12 tablet 03/25/2022 Suspended Start: 07-31-2021 take 1 tablet by shana th every six hours as needed for nausea and vomiting Ondansetron 4 mg tablet,disintegrating Active 4 mg PO EVERY 6 HOURS as needed for nausea and vomiting July 31, 2021 12:00am Comment on above: Take 1 tablet by shana th every 8 hours as needed. predniSONE 20 mg oral tablet (1 source) Start: 06-08-2019 End: 05-04-2020 take 2 tablets by mouth once daily at mealtime Prednisone 20 MG tablet Discontinued 40 mg PO DAILY June 08, 2019 1:00am May 04, 2020 1:08pm With food Problems Active Problems Problem Classification Problem Date Documented Date Episodic/Chronic Abdominal pain (1 source) Right flank pain; Translations: [Unspecified abdominal pain] 07-09-2021 Episodic Allergic reactions (2 sources) Allergy to penicillin; Translations: [Allergy status to penicillin] Onset: 12-26-2024 12-26-2024 Episodic Asthma (9 sources) Asthma; Translations: [Unspecified asthma, uncomplicated] Onset: 07-21-2011 07-21-2011 Chronic Attention-deficit, conduct, and disruptive behavior disorders (8 sources) Attention deficit hyperactivity disorder; Translations: [Attention-deficit hyperactivity disorder, unspecified type] Onset: 05-24-2013 05-24-2013 Chronic Diseases of mouth; excluding dental (5 sources) Disorder of oral soft tissues; Translations: [Cellulitis and abscess of mouth] Onset: 12-26-2024 12-26-2024 Episodic Disorders of teeth and jaw (4 sources) Toothache; Translations: [Other specified disorders of teeth and supporting structures] Onset: 12-26-2024 12-26-2024 Episodic Headache; including migraine (2 sources) Headache; Translations: [Headache, unspecified headache type] Episodic Influenza (2 sources) Influenza-like illness; Translations: [Influenza due to unidentified influenza virus with other respiratory manifestations] Episodic Mood disorders (1 source) Emotional problems; Translations: [Persistent mood [affective] disorder, unspecified] 05-04-2020 Chronic Nausea and vomiting (2 sources) Nausea, vomiting and diarrhea; Translations: [Nausea with vomiting, unspecified] 08-08-2021 Episodic Noninfectious gastroenteritis (1 source) Gastroenteritis; Translations: [Noninfective gastroenteritis and colitis, unspecified] 08-08-2021 Episodic Other circulatory disease (1 source) Elevated blood pressure; Translations: [Elevated blood-pressure reading, without diagnosis of hypertension] 12-27-2024 Episodic Other injuries and conditions due to external causes (1 source) Puncture wound - injury; Translations: [Other injury of unspecified body region, initial encounter] 09-29-2023 Episodic Other lower respiratory disease (1 source) H/O: asthma; Translations: [Personal history of other diseases of the respiratory system] 11-11-2018 Episodic Other lower respiratory disease (1 source) Dyspnea; Translations: [Dyspnea, unspecified] 11-12-2018 Episodic Other upper respiratory disease (1 source) Seasonal allergy; Translations: [Other seasonal allergic rhinitis] 05-04-2020 Chronic Rheumatoid arthritis and related disease (8 sources) Juvenile idiopathic arthritis; Translations: [Unspecified juvenile rheumatoid arthritis of unspecified site] Onset: 07-21-2011 04-15-2021 Chronic Unclassified (3 sources) Invalid ICD10 Description; Translations: [Invalid ICD10 Description] Onset: 05-29-2020 Unclassified (2 sources) Encounter for screening for genetic and chromosomal anomalies; Translations: [Encounter for screening for genetic and chromosomal anomalies] Onset: 05-08-2022 Unclassified (1 source) Autogenerated Problem Onset: 12-27-2024 12-27-2024 Past or Other Problems Problem Classification Problem Date Documented Date Episodic/Chronic Other connective tissue disease (8 sources) H/O: musculoskeletal disease; Translations: [Personal history of other diseases of the musculoskeletal system and connective tissue] Onset: 06-06-2013 06-06-2013 Episodic Other non-traumatic joint disorders (8 sources) Anterior knee pain; Translations: [Pain in unspecified knee] Onset: 07-31-2011 07-31-2011 Episodic Other non-traumatic joint disorders (8 sources) Pain in elbow; Translations: [Pain in unspecified elbow] Onset: 07-31-2011 07-31-2011 Episodic Other upper respiratory infections (4 sources) Sore throat symptom; Translations: [Acute pharyngitis, unspecified] Onset: 06-10-2024 Episodic Results Test Name Value Interpretation Reference Range Facility CBC panel Auto (Bld)on 12-30 Erythrocyte distribution width (RBC) [Ratio] 12.0 % Normal 11.5-15.0 [facility] Comment on above: Order Comment: Speci juan Type: BLOOD SPECIMENOrdering Facility: [facility] Address: [address] [place] [address] Performed By: #### 5 8410-2 ####[facility] LABORATORYCLIA [id number] [address] [place] Hematocrit (Bld) [Volume fraction] 35.4 % Low 39.0-51.0 [facility] Comment on above: Order Comment: Speci men Type: BLOOD SPECIMENOrdering Facility: [facility] Address: [address] [place] [address] Performed By: #### 5 8410-2 ####[facility] LABORATORYCLIA [id number] [place] [address] [place] Hemoglobin (Bld) [Mass/Vol] 12.4 g/dL Low 13.0-17.0 [facility] Comment on above: Order Comment: Speci men Type: BLOOD SPECIMENOrdering Facility: [facility] Address: [address] [place] [address] Performed By: #### 5 8410-2 ####[facility] LABORATORYCLIA [id number] [place] [address] [place] MCH (RBC) [Entitic mass] 30.2 pg Normal 26.0-34.0 [facility] Comment on above: Order Comment: Speci men Type: BLOOD SPECIMENOrdering Facility: [facility] Address: [address] [place] [address] Performed By: #### 5 8410-2 ####[facility] LABORATORYCLIA [id number] [place] [id number] [place] MCHC (RBC) [Mass/Vol] 35.0 g/dL Normal 30.5-36.0 [facility] Comment on above: Order Comment: Speci men Type: BLOOD SPECIMENOrdering Facility: [facility] Address: [address] [place] [address] Performed By: #### 5 8410-2 ####[facility] LABORATORYCLIA [id number] [place] [address] [place] MCV (RBC) [Entitic vol] 86.1 fL Normal 80.0-100.0 [facility] Comment on above: Order Comment: Speci men Type: BLOOD SPECIMENOrdering Facility: [facility] Address: [address] [place] [address] Performed By: #### 5 8410-2 ####[facility] LABORATORYCLIA [id number] [place] [address] [place] Nucleated RBC (Bld) [#/Vol] 10*3/uL Normal <0.01 [facility] Comment on above: Order Comment: Speci men Type: BLOOD SPECIMENOrdering Facility: [facility] Address: [address] [place] [address] Performed By: #### 5 8410-2 ####[facility] LABORATORYCLIA [id number] [place] [address] [place] Platelet mean volume (Bld) [Entitic vol] 8.7 fL Low 9.0-12.7 [facility] Comment on above: Order Comment: Speci men Type: BLOOD SPECIMENOrdering Facility: [facility] Address: [address] [place] [address] Performed By: #### 5 8410-2 ####[facility] LABORATORYCLIA [id number] [place] [id number] [place] Platelets (Bld) [#/Vol] 411 10*3/uL High 150-400 [facility] Comment on above: Order Comment: Speci men Type: BLOOD SPECIMENOrdering Facility: [facility] Address: [address] [place] [address] Performed By: #### 5 8410-2 ####[facility] LABORATORYCLIA [id number] [place] [id number] [facility] RBC (Bld) [#/Vol] 4.11 10*6/uL Low 4.20-6.00 [facility] Comment on above: Order Comment: Speci men Type: BLOOD SPECIMENOrdering Facility: [facility] Address: [address] [place] [address] Performed By: #### 5 8410-2 ####[facility] LABORATORYCLIA [id number] [place] [id number] [facility] WBC (Bld) [#/Vol] 10.96 10*3/uL Normal 3.70-11.00 [facility] Comment on above: Order Comment: Speci men Type: BLOOD SPECIMENOrdering Facility: [facility] Address: [address] [place], [place] [id number] Performed By: #### 5 8410-2 ####[facility] LABORATORYCLIA [id number] [place] [id number] [facility] CNDSon 12-30-2024 CNDS HNO ID: [id number] Author: NATALI PARRISH MD Service: Hospital Medicine Author Type: Physician Type: Discharge Summary Filed: 12/30/2024 09:57 Note Text: P DISCHARGE SUMMARY PATIENT NAME: Constance Anton ADMISSION DATE: 12/27/2024 DISCHARGE DATE: 12/30/2024 Attending Physician: Natali Parrish MD Code Status: Full Code Highest Readmission Risk Score: 10 The 30 day readmissions risk score is derived from an internally validated risk model which evaluates patient level characteristics, utilization history, medication orders and lab results up until the day of discharge. Patients with a score of 39 or above are considered highest risk for readmission. Specific patient level drivers will be listed at the bottom of the summary. Reason for Hospitalization: Submandibular abscess Operations During Hospitalization: IANDD of the left sublingual and submandibular space with extraction of tooth 18 done on 12/28. Hospital Course: 29 years old with past medical history of juvenile rheumatoid arthritis, chronic headache, asthma and ADHD presented to was transferred to [facility] on 12/27 due to [place]'s angina. Oral/maxillofacial surgeon was consulted along with infectious disease. Patient was started on dexamethasone and IV antibiotics and underwent IANDD of the left submandibular and sublingual spaces and extraction of tooth 18. Patient continued to improve clinically. ID and maxillofacial has cleared him for discharge. Patient will be discharged on levofloxacin and metronidazole to complete 10 days to follow-up with maxillofacial surgeon on Thursday Consulting Teams During Hospitalization: ID and ENT Treatment Team: Attending Provider: Natali Parrish MD Attending: MR KAMILAH HILARIO Consulting: Benjamín Morales DDS Consulting: Christie Manzo DMD Consulting: Mike Montes MD Patient Condition @ Discharge: Stable Discharge Disposition: Home with Self Care General: Patient is alert and oriented x3 and is in no acute respiratory distress HEENT: Left check mild swelling Lungs: Clear to auscultation, no wheezing, rales, or rhonchi. Cardiac: Regular rhythm and rate, S1-S2 within normal limits, no murmurs, gallops were appreciated, no rubs. Abdomen: Soft, nontender, nondistended, no HSM detected, bowel sounds are active. Extremities: [No edema, cyanosis, or clubbing. Skin: No rashes or breakdown. Musculoskeletal: normal MS exam, moves all extremities, DTR's normal Lymphatic: Negative cervical, supra-clavicular, groin lymphadenopathy. Neurologic: Cranial nerves from II-XII intact grossly, no focal deficits. Information Provided to Patient: Follow up pcp and ent DIET: Resume your pre-hospital diet ACTIVITY: Resume pre-hospital activity WOUND/SURGICAL SITE CARE: None ALLERGIES Allergen Reactions Cephalosporins Rash Spoke with patient and mother on 12/28/24 at [facility]. Mother was the primary historian. Explained has had rash in the past with Keflex. SD PharmD Clindamycin Intolerance Per ID physician 12/28/24 at [facility]: He was on clindamycin as outpatient and felt like pain was worse because of taking clindamycin. Dust Mites Other: See Comments Penicillins Rash Spoke with patient and mother on 12/28/24 at [facility]. Mother was the primary historian. Explained has had rash and anaphylactic reaction to penicillin, amoxicillin and Augmentin. Most recent reaction was when he was 18 years old. SD PharmD Discharge Medications: Medication List START taking these medications ibuprofen 400 mg tablet Commonly known as: MOTRIN Take 1 tablet by mouth every 6 hours as needed for pain for up to 5 days. levoFLOXacin 500 mg tablet Commonly known as: LEVAQUIN Take 1 tablet by mouth daily at 6 am for 9 doses. Patient should start on December 31, 2024. Start taking on: December 31, 2024 metroNIDAZOLE 500 mg tablet Commonly known as: FLAGYL Take 1 tablet by mouth every 8 hours for 27 doses. CONTINUE taking these medications albuterol 90 mcg/actuation Aero Commonly known as: PROVENTIL Inhale 2 Puffs as instructed every 4 hours as needed. albuterol HFA 90 mcg/actuation inhaler Commonly known as: PROVENTIL HFA, VENTOLIN HFA Inhale 2 Puffs as instructed every 4 hours as needed. FOR WHEEZING AND SHORTNESS OF BREATH. CANNABIDIOL PO cyclobenzaprine 10 mg tablet Commonly known as: FLEXERIL STOP taking these medications azithromycin 250 mg tablet Commonly known as: ZITHROMAX Z-BARRINGTON ASK your doctor about these medications ondansetron orally disintegrating 4 mg disintegrating tablet Commonly known as: ZOFRAN ODT Take 1 tablet by mouth every 8 hours as needed. Where to Get Your Medications These medications were sent to [facility] [address] [place] [address] - [phone] [place] [address] ibuprofen 400 mg tablet levoFLOXacin 500 mg tablet (more content not included)... Normal [facility] Comprehensive metabolic 2000 panelon 12-30-2024 Albumin [Mass/Vol] 3.1 g/dL Low 3.2-5.0 [facility] Comment on above: Order Comment: Speci men Type: BLOOD SPECIMENOrdering Facility: [facility] [address]: [address] [facility] [address] Performed By: #### 2 4323-8, 94409-7, 2777-1 ####[facility] LABORATORYCLIA [id number] [place] [address] [place] ALP [Catalytic activity/Vol] 34 U/L Low 45-117 [facility] Comment on above: Order Comment: Speci men Type: BLOOD SPECIMENOrdering Facility: [facility] Address: [address] [place] [address] Performed By: #### 2 4323-8, 96652-0, 2776- ####[facility] LABORATORYCLIA [id number] [address] OF [facility] ALT [Catalytic activity/Vol] U/L Low 13-61 [facility] Comment on above: Order Comment: Speci men Type: BLOOD SPECIMENOrdering Facility: [facility] Address: [address] [place] [address] Result Comment: Resu lts may be falsely depressed after the administration of Sulfasalazine and/or Sulfapyridine. Performed By: #### 2 4323-8, , 2776-04 ####[facility]ORATORYCLIA [id number] [address] [place] [facility] Anion gap [Moles/Vol] 9 mmol/L Normal 5-16 [facility] Comment on above: Order Comment: Speci men Type: BLOOD SPECIMENOrdering Facility: [facility] Address: [address] [place] [address] Performed By: #### 2 4323-8, 97976-6, 2776-04 ####[facility] LABORATORYCLIA [id number] [address] STATES OF [facility] AST [Catalytic activity/Vol] 10 U/L Normal 8-34 [facility] Comment on above: Order Comment: Speci men Type: BLOOD SPECIMENOrdering Facility: [facility] Address: [address] [place] [address] Result Comment: Resu lts may be falsely depressed after the administration of Sulfasalazine and/or Sulfapyridine. Performed By: #### 2 4323-8, 29806-7, 277- ####[facility] LABORATORYCLIA [id number] [place] [address] [place] Bilirubin [Mass/Vol] 0.4 mg/dL Normal 0.2-1.0 [facility] Comment on above: Order Comment: Speci men Type: BLOOD SPECIMENOrdering Facility: [facility] Address: [address] [place] [address] Performed By: #### 2 4323-8, , 2776-04 ####[facility] LABORATORYCLIA [id number] [place] [address] [place] Calcium [Mass/Vol] 8.9 mg/dL Normal 8.5-10.5 [facility] Comment on above: Order Comment: Speci men Type: BLOOD SPECIMENOrdering Facility: [facility] Address: [address] [place] [address] Performed By: #### 2 4323-8, , 2776-04 ####[facility] LABORATORYCLIA [id number] [place] [address] [place] Chloride [Moles/Vol] 106 mmol/L Normal 98-107 [facility] [facility] Comment on above: Order Comment: Speci men Type: BLOOD SPECIMENOrdering Facility: [facility] Address: [address] [place] [address] Performed By: #### 2 4323-8, , 2776-04 ####[facility] LABORATORYCLIA [id number] [place] [address] [place] CO2 [Moles/Vol] 29 mmol/L Normal 21-32 [facility] Comment on above: Order Comment: Speci men Type: BLOOD SPECIMENOrdering Facility: [facility] Address: [address] [place] [address] Performed By: #### 2 4323-8, , 2776-04 ####[facility] LABORATORYCLIA [id number] [place] [id number] [place] Creatinine [Mass/Vol] 0.76 mg/dL Normal 0.50-1.40 [facility] Comment on above: Order Comment: Speci men Type: BLOOD SPECIMENOrdering Facility: [facility] Address: [address] [place] [address] Result Comment: Klarissa ents receiving either N-Acetylcysteine (NAC) or Metamizole prior to venipuncture, may have falsely depressed results. Performed By: #### 2 4323-8, 83995-1, 2776-04 ####[facility] LABORATORYCLIA [id number] [place] [id number] [place] eGFRcr SerPlBld CKD-EPI 2020 126 mL/min/1.73m??? Normal >=60 [facility] Comment on above: Order Comment: Brit martinez Type: BLOOD SPECIMENOrdering Facility: [facility] Address: [address] [place] [address] Result Comment: Tara mated Glomerular Filtration Rate (eGFR) is calculated using the 2020 CKD-EPI creatinine equation. This equation utilizes serum creatinine, sex, and age as parameters. The creatinine assay has traceable calibration to isotope dilution-mass spectrometry. Refer to KDIGO guidelines for clinical interpretation. In patients with unstable renal function, e.g. those with acute kidney injury, the eGFR may not accurately reflect actual GFR. Performed By: #### 2 4323-8, , 2776-04 ####[facility] LABORATORYCLIA [id number] [address] [place] Glucose [Mass/Vol] 81 mg/dL Normal 70-100 [facility] Comment on above: Order Comment: Brit martinez Type: BLOOD SPECIMENOrdering Facility: [facility] Address: [address] [place] [address] Result Comment: The [place] Diabetes Association (ADA) provides guidance for cutoff values for fasting glucose and random glucose. The ADA defines fasting as no caloric intake for at least 8 hours. Fasting plasma glucose results between 100 to 125 mg/dL indicate increased risk for diabetes (prediabetes). Fasting plasma glucose results greater than or equal to 126 mg/dL meet the criteria for diagnosis of diabetes. In the absence of unequivocal hyperglycemia, results should be confirmed by repeat testing. In a patient with classic symptoms of hyperglycemia or hyperglycemic crisis, random plasma glucose results greater than or equal to 200 mg/dL meet the criteria for diagnosis of diabetes. Reference: Standards of Medical Care in Diabetes 2016, [place] Diabetes Association. Diabetes Care. 2016.39(Suppl 1). Results may be falsely elevated after the administration of Sulfapyridine. Results may be falsely depressed after the administration of Sulfasalazine. Performed By: #### 2 4323-8, 20273-8, 2776-04 ####[facility] LABORATORYCLIA [id number] [place] [id number] [place] Potassium [Moles/Vol] 3.4 mmol/L Low 3.5-5.1 [facility] Comment on above: Order Comment: Speci men Type: BLOOD SPECIMENOrdering Facility: [facility] Address: [address] [place] [address] Performed By: #### 2 4323-8, , 2776-04 ####[facility] LABORATORYCLIA [id number] [place] [id number] [place] Protein [Mass/Vol] 6.0 g/dL Normal 6.0-8.5 [facility] Comment on above: Order Comment: Speci men Type: BLOOD SPECIMENOrdering Facility: [facility] Address: [address] [place], [place] [address] Performed By: #### 2 4323-8, , 2776-04 ####[facility] LABORATORYCLIA [id number] [place] [id number] [place] Sodium [Moles/Vol] 144 mmol/L Normal 136-145 [facility] Comment on above: Order Comment: Speci men Type: BLOOD SPECIMENOrdering Facility: [facility] Address: [address] [place], [place] [address] Performed By: #### 2 4323-8, , 2776-04 ####[facility] LABORATORYCLIA [id number] [place] [id number] [place] Urea nitrogen [Mass/Vol] 16 mg/dL Normal 7-26 [facility] Comment on above: Order Comment: Speci men Type: BLOOD SPECIMENOrdering Facility: [facility] Address: [address] [place] [address] Performed By: #### 2 4323-8, 44875-6, 2777-1 ####[facility] LABORATORYCLIA [id number] [place] [address] [place] Magnesium SerPl-mCncon 12-30 Magnesium [Mass/Vol] 1.9 mg/dL Normal 1.6-2.6 [facility] Comment on above: Order Comment: Speci men Type: BLOOD SPECIMENOrdering Facility: [facility] Address: [address] [place], [place] [address] Performed By: #### 2 4323-8, 02173-2, 2777-1 ####[facility] LABORATORYCLIA [id number] [place] [id number] [facility] [place] Phosphate SerPl-mCncon 12-30 Phosphate [Mass/Vol] 2.8 mg/dL Normal 2.5-4.9 [facility] Comment on above: Order Comment: Speci men Type: BLOOD SPECIMENOrdering Facility: [facility] Address: [address] [place], [place] [address] Result Comment: Elev ated m-protein (paraprotein) levels in the serum may be exhibited in patients with monoclonal gammopathies, causing falsely elevated inorganic phosphorus results. Performed By: #### 2 4323-8, 28875-8, 2777-1 ####[facility] LABORATORYIA [id number] [place] [id number] [place] ANES POSTPROC EVALon 025 ANES POSTPROC EVAL HNO ID: [id number] Author: CARLOZ MANSFIELD MD Service: Anesthesiology Author Type: Anesthesiologist Type: Anesthesia Postprocedure Evaluation Filed: 12/29/2024 09:15 Note Text: POST ANESTHESIA EVALUATION NOTE : 1995 Procedure Summary Date: 12/28/24 Room / Location: OR 14 / MR OR Anesthesia Start: 328 Anesthesia Stop: 429 Procedures: INCISION AND DRAINAGE FLOOR OF MOUTH AND LEFT SUBMANDIBULAR SPACE (Left: Neck) extraction of tooth 18 (Left: Mouth) Diagnosis: Submandibular abscess (Submandibular abscess [K12.2]) Surgeons: Christie Manzo DMD Responsible Provider: Carloz Mansfield MD Anesthesia Type: general ASA Status: 2 Anesthesia Type: general Airway Type: ETT Last Vitals Vitals Value Taken Time BP 104/58 12/29/24 04:51 Temp 36.7 ?C (98 ?F) 12/29/24 04:51 Pulse 52 12/29/24 04:51 Resp 18 12/29/24 04:51 SpO2 100 % 12/29/24 04:51 Post Anesthesia Patient Status Patient Evaluation: PACU. Anticipated Disposition: inpatient floor planned admission. Neurological Status: aware and responsive. Pulmonary Status: breathing comfortably on room air Airway Control: returned to baseline unsupported. Cardiovascular Status: stable. Pain Management: clinically adequate Postoperative Hydration: acceptable. Intraoperative Events: no significant anesthesia events Post Operative Nausea/Vomiting Status: no significant post operative nausea or vomiting Recommendation: continue current plan of care. Anesthesia Observations No Documentation SIGNATURE: Carloz Mansfield MD PATIENT NAME: Constance Anton DATE: December 29, 2024 TIME: 9:15 AM CSN: [id number] Normal [facility] Basic metabolic 2000 panelon 12-29-2024 Anion gap [Moles/Vol] 8 mmol/L Normal 5-16 [facility] Comment on above: Order Comment: Speci juan Type: BLOOD SPECIMENOrdering Facility: [facility] Address: [address] [place] [address] Performed By: #### 2 4321-2 ####[facility] LABORATORYCLIA [id number] [place] [address] [place] Calcium [Mass/Vol] 9.5 mg/dL Normal 8.5-10.5 [facility] Comment on above: Order Comment: Luisi juan Type: BLOOD SPECIMENOrdering Facility: [facility] Address: [address] [place] [address] Performed By: #### 2 4321-2 ####[facility] LABORATORYCLIA [id number] [place] [id number] [place] Chloride [Moles/Vol] 105 mmol/L Normal 98-107 [facility] Comment on above: Order Comment: Speci men Type: BLOOD SPECIMENOrdering Facility: [facility] Address: [address] [place] [address] Performed By: #### 2 4321-2 ####[facility] LABORATORYCLIA [id number] [place] [id number] [place] CO2 [Moles/Vol] 27 mmol/L Normal 21-32 [facility] Comment on above: Order Comment: Speci men Type: BLOOD SPECIMENOrdering Facility: [facility] Address: [address] [place] [address] Performed By: #### 2 4321-2 ####[facility] LABORATORYCLIA [id number] [place] [address] [place] Creatinine [Mass/Vol] 0.66 mg/dL Normal 0.50-1.40 [facility] Comment on above: Order Comment: Speci men Type: BLOOD SPECIMENOrdering Facility: [facility] Address: [address] [place] [address] Result Comment: Klarissa ents receiving either N-Acetylcysteine (NAC) or Metamizole prior to venipuncture, may have falsely depressed results. Performed By: #### 2 4321-2 ####[facility] LABORATORYCLIA [id number] [place] [address] [place] eGFRcr SerPlBld CKD-EPI 2020 131 mL/min/1.73m??? Normal >=60 [facility] Comment on above: Order Comment: Speci [facility] Type: BLOOD SPECIMENOrdering Facility: [facility] Address: [address] [place] [address] Result Comment: Tara mated Glomerular Filtration Rate (eGFR) is calculated using the 2020 CKD-EPI creatinine equation. This equation utilizes serum creatinine, sex, and age as parameters. The creatinine assay has traceable calibration to isotope dilution-mass spectrometry. Refer to KDIGO guidelines for clinical interpretation. In patients with unstable renal function, e.g. those with acute kidney injury, the eGFR may not accurately reflect actual GFR. Performed By: #### 2 4321-2 ####[facility] LABORATORYCLIA [id number] [place] [address] [place] Glucose [Mass/Vol] 130 mg/dL High 70-100 [facility] Comment on above: Order Comment: Brit martinez Type: BLOOD SPECIMENOrdering Facility: [facility] Address: [address] [place] [address] Result Comment: The [place] Diabetes Association (ADA) provides guidance for cutoff values for fasting glucose and random glucose. The ADA defines fasting as no caloric intake for at least 8 hours. Fasting plasma glucose results between 100 to 125 mg/dL indicate increased risk for diabetes (prediabetes). Fasting plasma glucose results greater than or equal to 126 mg/dL meet the criteria for diagnosis of diabetes. In the absence of unequivocal hyperglycemia, results should be confirmed by repeat testing. In a patient with classic symptoms of hyperglycemia or hyperglycemic crisis, random plasma glucose results greater than or equal to 200 mg/dL meet the criteria for diagnosis of diabetes. Reference: Standards of Medical Care in Diabetes 2016, [place] Diabetes Association. Diabetes Care. 2016.39(Suppl 1). Results may be falsely elevated after the administration of Sulfapyridine. Results may be falsely depressed after the administration of Sulfasalazine. Performed By: #### 2 4321-2 ####[facility] LABORATORYCLIA [id number] [place] [address] [place] Potassium [Moles/Vol] 3.9 mmol/L Normal 3.5-5.1 [facility] Comment on above: Order Comment: Brit juan Type: BLOOD SPECIMENOrdering Facility: [facility] Address: [address] [place] [address] Performed By: #### 2 4321-2 ####[facility] LABORATORYCLIA [id number] [place] [id number] [place] Sodium [Moles/Vol] 140 mmol/L Normal 136-145 [facility] Comment on above: Order Comment: Brit martinez Type: BLOOD SPECIMENOrdering Facility: [facility] Address: [address] [place] [address] Performed By: #### 2 4321-2 ####[facility] LABORATORYCLIA [id number] [place] [id number] [place] Urea nitrogen [Mass/Vol] 11 mg/dL Normal 7-26 [facility] Comment on above: Order Comment: Speci men Type: BLOOD SPECIMENOrdering Facility: [facility] Address: [address] [place] [address] Performed By: #### 2 4321-2 ####[facility] LABORATORYCLIA [id number] [place] [id number] [place] CBC panel Auto (Bld)on 12-29 Erythrocyte distribution width (RBC) [Ratio] 12.0 % Normal 11.5-15.0 [facility] Comment on above: Order Comment: Speci men Type: BLOOD SPECIMENOrdering Facility: [facility] Address: [address] [place] [address] Performed By: #### 5 8410-2 ####[facility] LABORATORYCLIA [id number] [place] [id number] [place] Hematocrit (Bld) [Volume fraction] 37.9 % Low 39.0-51.0 [facility] Comment on above: Order Comment: Speci men Type: BLOOD SPECIMENOrdering Facility: [facility] Address: [address] [place] [address] Performed By: #### 5 8410-2 ####[facility] LABORATORYIA [id number] [place] [id number] [place] Hemoglobin (Bld) [Mass/Vol] 13.1 g/dL Normal 13.0-17.0 [facility] Comment on above: Order Comment: Speci men Type: BLOOD SPECIMENOrdering Facility: [facility] Address: [address] [place] [address] Performed By: #### 5 8410-2 ####[facility] LABORATORYCLIA [id number] [place] [id number] [place] MCH (RBC) [Entitic mass] 30.2 pg Normal 26.0-34.0 [facility] Comment on above: Order Comment: Speci men Type: BLOOD SPECIMENOrdering Facility: [facility] Address: [address] [place] [address] Performed By: #### 5 8410-2 ####[facility] LABORATORYCLIA [id number] [place] [id number] [place] [facility] MCHC (RBC) [Mass/Vol] 34.6 g/dL Normal 30.5-36.0 [facility] Comment on above: Order Comment: Speci men Type: BLOOD SPECIMENOrdering Facility: [facility] Address: [address] [place] [address] Performed By: #### 5 8410-2 ####[facility] LABORATORYCLIA [id number] [place] [id number] [facility] [place] MCV (RBC) [Entitic vol] 87.3 fL Normal 80.0-100.0 [facility] Comment on above: Order Comment: Speci men Type: BLOOD SPECIMENOrdering Facility: [facility] Address: [address] [place] [address] Performed By: #### 5 8410-2 ####[facility] LABORATORYCLIA [id number] [address] Nucleated RBC (Bld) [#/Vol] 10*3/uL Normal <0.01 [facility] Comment on above: Order Comment: Speci men Type: BLOOD SPECIMENOrdering Facility: [facility] Address: [address] [place] [address] Performed By: #### 5 8410-2 ####[facility] LABORATORYCLIA [id number] [place] [id number] [place] Platelet mean volume (Bld) [Entitic vol] 8.8 fL Low 9.0-12.7 [facility] Comment on above: Order Comment: Speci men Type: BLOOD SPECIMENOrdering Facility: [facility] Address: [address] [place] [address] Performed By: #### 5 8410-2 ####[facility] LABORATORYCLIA [id number] [place] [id number] [facility] Platelets (Bld) [#/Vol] 367 10*3/uL Normal 150-400 [facility] Comment on above: Order Comment: Speci men Type: BLOOD SPECIMENOrdering Facility: [facility] Address: [address] [place] [address] Performed By: #### 5 8410-2 ####[facility] LABORATORYCLIA [id number] [address] RBC (Bld) [#/Vol] 4.34 10*6/uL Normal 4.20-6.00 [facility] Comment on above: Order Comment: Speci men Type: BLOOD SPECIMENOrdering Facility: [facility] Address: [address] [place] [address] Performed By: #### 5 8410-2 ####[facility] LABORATORYCLIA [id number] [place] [id number] [facility] WBC (Bld) [#/Vol] 13.51 10*3/uL High 3.70-11.00 [facility] Comment on above: Order Comment: Speci men Type: BLOOD SPECIMENOrdering Facility: [facility] Address: [address] [place] [address] Performed By: #### 5 8410-2 ####[facility] LABORATORYCLIA [id number] [address] CONSULT PROGon 12-29-2024 CONSULT PROG HNO ID: [id number] Author: MIKE MONTES MD Service: Infectious Disease Author Type: Physician Type: Consult Progress Note Filed: 12/29/2024 09:13 Note Text: Infectious Disease SERVICE CONSULT PROGRESS NOTE SERVICE DATE: 12/29/2024 SERVICE TIME: 9:10 AM Subjective INTERVAL HPI: Patient reports significant decrease in pain and swelling of the surgical area. Denies fevers or chills. No nausea or vomiting. Able to open his mouth more. Has been taking p.o. Current Facility-Administere d Medications Medication Dose Route Frequency levoFLOXacin iv piggyback 500 mg in D5W 100 mL (LEVAQUIN) 500 mg INTRAVENOUS DAILY NaCl 0.9% iv flush bag 20 mL INTRAVENOUS PRN ondansetron (PF) 4 mg injection (ZOFRAN) 4 mg INTRAVENOUS q 6 H PRN albuterol HFA 90 mcg/actuation 2 puff (PROVENTIL HFA, VENTOLIN HFA) 2 puff INHALATION q 4 H PRN morphine 2 mg injection 2 mg INTRAVENOUS q 4 H PRN acetaminophen 650 mg CUP (TYLENOL) 650 mg ORAL q 4 H PRN ibuprofen 400 mg tab(s) (MOTRIN) 400 mg ORAL q 6 H PRN lactated ringers iv infusion 75 mL/hr INTRAVENOUS CONTINUOUS Chlorhexidine Gluconate 0.12 % 15 mL (PERIDEX) 15 mL ORAL q 6 H dexAMETHasone sodium phosphate 8 mg injection (DECADRON) 8 mg INTRAVENOUS q 8 H metroNIDAZOLE iv piggyback 500 mg in NaCl (iso-osmotic) 100 mL (FLAGYL) 500 mg INTRAVENOUS q 8 H Objective PHYSICAL EXAM: Physical Exam Performed: BP 104/58 Pulse 52 Temp (Src) 98 (Oral) Resp 18 Ht 6' 2 (1.88m) Wt 135 lb 5.8 oz (61.4kg) SpO2 100% BMI 17.37 kg/(m2). O2 Therapy: Room Air Alert and oriented. No acute distress. Regular and rhythm. Breathing nonlabored. No wheezes. Abdomen soft, nontender. No pedal edema. Fisher drain has been removed. No erythema at the surgical site. Patient able to open his mouth more than yesterday. DATA: Diagnostic tests reviewed for today's visit: CBC: Recent Labs 12/29/24 0459 WBC 13.51* RBC 4.34 HB 13.1 HCT 37.9* PLT 367 MCV 87.3 MCH 30.2 MPV 8.8* CMP: Recent Labs 12/29/24 0459 NA 140 K 3.9 CHLOR 105 CO2 27 BUN 11 CREAT 0.66 GLUC 130* CA 9.5 ANION 8 Impression/Recommend ations Principal Problem: Left floor of mouth and submandibular space abscess, tooth #18 abscess. S/p IANDD and extraction of tooth #18 on 12/27/2024. Operative cultures are pending. Patient has significant PCN allergy. Continue levofloxacin and flagyl. Will change to oral administration of antibiotics. Both have excellent oral bioavailability. Anticipate total 10-day course of post op antibiotics. Steroids per ENT. Steroids may be etiology of his leukocytosis. Will follow. SIGNATURE: Mike Montes MD PATIENT NAME: Constance Anton DATE: December 29, 2024 TIME: 9:10 AM [facility] ANES PRE-OPon 12-28-2024 ANES PRE-OP HNO ID: [id number] Author: CARLOZ MANSFIELD MD Service: Anesthesiology Author Type: Anesthesiologist Type: Anesthesia Preprocedure Evaluation Filed: 12/28/2024 02:39 Note Text: ANESTHESIOLOGY DAY OF SURGERY NOTE : 1995 Procedure Information Date/Time: 12/28/24 0331 Procedures: INCISION AND DRAINAGE FLOOR OF MOUTH AND LEFT SUBMANDIBULAR SPACE (Left: Neck) extraction of tooth 18 (Left: Mouth) Location: MR OR 05 / MR OR Surgeons: Christie Manzo DMD Estimated body mass index is 16.42 kg/m? as calculated from the following: Height as of this encounter: 188 cm (6' 2). Weight as of this encounter: 58 kg (127 lb 13.9 oz). Most recent hematocrit and potassium results: Potassium 3.8 12/27/2024 Relevant Problems ANESTHESIA (within normal limits) CARDIO (within normal limits) ENDO (within normal limits) GI (within normal limits) -RENAL (within normal limits) NEURO-PSYCH (within normal limits) PULMONARY (+) Asthma (HCC) Other (+) JRA (juvenile rheumatoid arthritis) ([facility]) I - PHYSICAL EVALUATION AIRWAY Patient intubated: No. Tracheostomy tube not present Mallampati: IV. TM distance: >3 FB. Neck ROM: full ROM without neurological symptoms. Mouth opening: <2 FB. Short neck: no. Thick neck: no Thompson present: yes Microretrognathia/Mi cronagthia/Recessed Chin: No DENTAL Dental findings: teeth intact. Additional exam findings: no II - ANESTHESIA PLAN ASA Score: 2 Anesthetic Plan: general Airway type: ETT The patient is a current smoker. NPO Status: adequate Anesthetic plan additional comments: Nasal ett. Monitoring Plan Monitoring plan: standard ASA. Post Procedure Analgesic Plan Postoperative analgesic plan: parenteral or oral opioids and multimodal analgesia. Informed Consent Anesthetic risks, benefits, alternatives, personnel and consent discussed: yes. Patient / Responsible [employer] agrees to proceed: yes Patient / Surrogate agrees to blood products: Yes Potential Anesthesia issues that may suggest increased risk of complications or contraindication to planned procedure: none. No vitals data found for the desired time range. Facility-Administere d Medications as of 12/28/2024 Medication Dose Route Frequency [Transfer Hold] vancomycin dosing and monitoring per pharmacy OTHER As Directed [Transfer Hold] levoFLOXacin iv piggyback 500 mg in D5W 100 mL (LEVAQUIN) 500 mg INTRAVENOUS DAILY [Transfer Hold] NaCl 0.9% iv flush bag 20 mL INTRAVENOUS PRN [Transfer Hold] ondansetron (PF) 4 mg injection (ZOFRAN) 4 mg INTRAVENOUS q 6 H PRN [Transfer Hold] albuterol HFA 90 mcg/actuation 2 puff (PROVENTIL HFA, VENTOLIN HFA) 2 puff INHALATION q 4 H PRN [COMPLETED] morphine 0.5 mg injection 0.5 mg INTRAVENOUS ONCE [Transfer Hold] vancomycin iv piggyback 1 g in D5W 200 mL (VANCOCIN) 1 g INTRAVENOUS q 12 HR [Transfer Hold] morphine 2 mg injection 2 mg INTRAVENOUS q 4 H PRN [Transfer Hold] acetaminophen 650 mg CUP (TYLENOL) 650 mg ORAL q 4 H PRN [Transfer Hold] ibuprofen 400 mg tab(s) (MOTRIN) 400 mg ORAL q 6 H PRN [Transfer Hold] lactated ringers iv infusion 125 mL/hr INTRAVENOUS CONTINUOUS Outpatient Medications as of 12/28/2024 Medication Sig azithromycin (ZITHROMAX Z-[place]) 250 mg tablet Take 2 tablets by mouth once daily for 1 day, then 1 tablet once daily for 4 days cannabidiol, CBD, (CANNABIDIOL ORAL) Take by mouth. Medical marijuana ondansetron orally disintegrating (ZOFRAN ODT) 4 mg disintegrating tablet Take 1 tablet by mouth every 8 hours as needed. (Patient not taking: Reported on 09/29/2023) albuterol HFA (PROVENTIL HFA, VENTOLIN HFA) 90 mcg/actuation inhaler Inhale 2 Puffs as instructed every 4 hours as needed. FOR WHEEZING AND SHORTNESS OF BREATH. albuterol 90 mcg/actuation aero Inhale 2 Puffs as instructed every 4 hours as needed. I have interviewed and examined the patient. I have reviewed the medical record and/or the pre-anesthesia evaluation, pertinent labs, and test results. This contains updated information obtained within 48 hours of Surgery/Procedure. SIGNATURE: Carloz Mansfield MD PATIENT NAME: Constance Anton DATE: December 28, 2024 TIME: 2:39 AM CSN: [id number] [facility] BRIEF OP NOTon 12-28-2024 BRIEF OP NOT HNO ID: [id number] Author: CHRISTIE MANZO DMD Service: Oral/Maxillofacial Surgery Author Type: Dentist Type: Brief Op Note Filed: 12/28/2024 04:46 Note Text: Summary: Operative Report OPERATIVE NOTE LOG ID: [id number] SURGERY/PROCEDURE DATE: 12/28/2024 INCISION/PROCEDURE START TIME: 3:49 AM INCISION CLOSE/PROCEDURE END TIME: 4:14 AM SURGEON(S)/PROCEDURA LIST(S) AND MICRO COMPUTER SPECIALIST(S): Surgeons and Role: * Christie Manzo DMD - Primary Nurse Practitioner: Moon De Anda APRN.COMMERCIAL [employer] PRE-OP/PRE-PROCEDURE DIAGNOSIS: Left sublingual and submandibular abscess associated with abscessed tooth 18 POST-OP/POST-PROCEDU RE DIAGNOSIS: Left sublingual and submandibular abscess associated with abscessed tooth 18 SURGERY/PROCEDURE(S) : Incision and drainage of the left sublingual and submandibular spaces and extraction of tooth 18 INDICATION: The patient is a 29-year-old male who presented as a transfer from [facility] with a CT scan concerning for an abscess along the Sublingual and left submandibular spaces. After a review of the patient's imaging, exam and history it was felt to be urgent to take the patient to the OR for extraction of tooth 18 and IANDD of the left submandibular and sublingual spaces. Informed consent was obtained. ANESTHESIA: General ESTIMATED BLOOD LOSS: 2 mls IV FLUIDS: 1 liter URINE OUTPUT: not measured IMPLANTS: none DRAINS: 2 uday drains: one within the submandibular space and one extends from the submandibular space posteriorly into the sublingual space. SPECIMENS: cultures taken from the left sublingual and left submandibular spaces COMPLICATIONS: None TECHNQUE: The patient was correctly identified in the pre-operative holding area and transferred to OR 14. The patient was transferred from the stretcher to the OR table. All standard ASA monitors and SCDs were applied. The patient was was successfully induced under general anesthesia and an oral endotracheal tube was placed and secured by the anesthesia team. Arms were tucked and padded appropriately. The patient's thompson was trimmed and he was prepped and draped in the normal sterile fashion for oral maxillofacial surgery procedures. A timeout was completed with all members the team in agreement of the planned surgical procedure. Attention was directed to the left neck. 2 cc of 0.5% marcaine with epinephrine was infiltrated subcutaneously. A 2 cm incision was made greater then 2 cm inferior to the inferior boarder of the mandible. Blunt dissection as completed to the inferior border of the mandible and along the lingual cortex and within the sublingual space. Cultures were taken. A throat pack was placed and a total of 5 cc of half percent Marcaine with epinephrine was injected as blocks and local infiltration. Tooth 18 was elevated and delivered without complications. A lingual flap was elevated staying subperiosteal. 3cc of purulence drained and additional cultures were taken. The spaces were copious irrigated with Irrisept and then with normal saline. 2 uday drains were placed and secured with 2-0 silk. One 4-0 chromic gut suture was placed over the extraction site. The throat pack was removed. 4 x 4's were placed as a dressing in the mouth. An ABD and Kerlix were used as a neck dressing and the patient emerged from anesthesia and was extubated without complications. The patient was transferred to the postoperative care unit in stable condition SIGNATURE: Christie Manzo DMD PATIENT NAME: Constance Anton DATE: December 28, 2024 TIME: 4:34 AM Normal [facility] Bacteria Spec Anaerobe Culto n 12-28-2024 Bacteria identified Anaer cx Nom (Unsp spec) ORGANISM ID: 1 Moderate Mixed anaerobic aide Normal [facility] Comment on above: Performed By: #### 6 462-6, 635-3 ####[facility]ORYCLIA [id number] [place] [id number] [place] Bacteria identified Anaer cx Nom (Unsp spec) ORGANISM ID: 1 Few Mixed anaerobic aide Normal [facility] Comment on above: Performed By: #### 6 462-6, 635-3 ####[facility]ATORYCLIA [id number] [place] [id number] [place] Bacteria Wnd Culton 12-29-19 Bacteria identified Cx Nom (Wound) ORGANISM ID: 1 Few mixed oral and respiratory aide GRAM STAIN: Moderate White blood cells Few Gram positive cocci Rare Gram negative bacilli Rare Gram positive bacilli Abnormal [facility] Comment on above: Performed By: #### 6 462-6, 635-3 ####[facility]ATORYCLIA [id number] [place] [address] [place] Bacteria identified Cx Nom (Wound) CULTURE, WOUND: Rare skin aide GRAM STAIN: Rare White blood cells Rare Gram positive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 specimens 9.0 to 10.9 Positive specimens >10.9 The magnitude of the measured result, above the cutoff, is not indicative of the amount of antibody present. Result rechecked. [place] [address] [place] [address] Agapito Pina III, M.D. [id number] Performed By: #### 2 26791 #### [address] [address] Mumps IgG, Qual Negative Normal NEGAT [facility] Comment on above: Result Comment: Abse nce of detectable mumps virus IgG antibodies. A negative result generally indicates that the patient has not been infected and is susceptible to mumps. If the subject has no history of mumps, has not been previously vaccinated and exposure to mumps virus is suspected despite a negative finding, a second sample should be collected and tested no less than one to two weeks later. Result rechecked. Performed By: #### 2 63183 #### [address] [address] RUBELLA IgG ANTIBODY [CCL]on 03-03-2020 Rubella IgG Ab 0.43 Indexlue Normal [facility] Comment on above: Result Comment: Inde x values are interpreted as follows: Negative specimens <0.90 Equivocol specimens 0.90 to 0.99 Positive specimens >0.99 The magnitude of the measured result is not indicative of the [place] [address] Agapito Pina III, M.D. [id number] Performed By: #### 2 36185 #### [place] [id number] Rubella IgG Ab, Qual Negative Normal NEGAT [facility] Comment on above: Result Comment: Samp le is considered negative for IgG antibodies to rubella virus. A negative result presumes that immunity has not been acquired. If exposure to rubella virus is suspected despite a negative finding, a second specimen should be collected and tested one to two weeksn later. Seroconversion from a negative specimen to a positive specimen is evidence of either recent infection, response to vaccination, or administration of immunoglobulins. Performed By: #### 2 30814 #### [place] [id number] Measles IgG Antibodyon 03-02 Measles IgG Ab, Qual Abnormal Negative [facility] Comment on above: Result Comment: Posi tive Presence of detectable measles virus IgG antibodies. A positive result generally indicates exposure to measles virus or previous vaccination. Performed By: #### A HBSQ, MEASLG, RUBIGG #### [facility] Routine Lab [facility] [place] [id number] #### MUMPSG #### See report for performing lab information. Measles IgG Antibody Normal [facility] Comment on above: Result Comment: 20.3 AU/mL Negative Specimens <13.5 Equivocal Specimens >=13.5 to <16.5 Positive Specimens >=16.5 The magnitude of the measured result, above the cutoff, is not indicative of the amount of antibody present. Value Negative Specimens <13.5 Equivocal Specimens >=13.5 to <16.5 Positive Specimens >=16.5 The magnitude of the measured result, above the cutoff, is not indicative of the amount of antibody present. interpreted as Negative Specimens <13.5 Equivocal Specimens >=13.5 to <16.5 Positive Specimens >=16.5 The magnitude of the measured result, above the cutoff, is not indicative of the amount of antibody present. follows: Negative Specimens <13.5 Equivocal Specimens >=13.5 to <16.5 Positive Specimens >=16.5 The magnitude of the measured result, above the cutoff, is not indicative of the amount of antibody present. Performed By: #### A HBSQ, MEASLG, RUBIGG #### [facility] Routine Lab [address] [place] [address] #### MUMPSG #### See report for performing lab information. Mumps IgG Abon 03-02-2020 Mumps IgG Ab <5.0 Normal [facility] Comment on above: Performed By: #### A HBSQ, MEASLG, RUBIGG #### [facility] Routine Lab [address] [place] [address] #### MUMPSG #### See report for performing lab information. Mumps IgG, Qual Negative Normal Negative [facility] Comment on above: Performed By: #### A HBSQ, MEASLG, RUBIGG #### [facility] Routine Lab [address] [place] [address] #### MUMPSG #### See report for performing lab information. Rubella IgG Antibodyon 03-02 Rubella IgG Ab 0.43 Index Value Normal [facility] Comment on above: Performed By: #### A HBSQ, MEASLG, RUBIGG #### [facility] Routine Lab [address] [place] [address] #### MUMPSG #### See report for performing lab information. Rubella IgG Ab, Qual Negative Normal Negative [facility] Comment on above: Performed By: #### A HBSQ, MEASLG, RUBIGG #### [facility] Routine Lab [address] [place] [address] #### MUMPSG #### See report for performing lab information. URINE COTININE TEST [[facility]]on 03-01-2020 COTININE Negative Normal NORMAL: NEGATIVE [facility] Comment on above: Result Comment: The COT One Step Cotinine Device (Urine) yields a positve result when the Cotinine in urine exceeds 200 ng/mL. A Cotinine concentration > 200 ng/mL indicates an active tobacco product user. The window of detection for Cotinine in urine at a cutoff level of 200 ng/mL is expected to be up to 2-3 days after nicotine use. Performed By: #### 2 64225 #### [facility],[address] [place], [place] [id number] GLUCOSEon 02-29-2020 Glucose [Mass/Vol] 80 mg/dL Normal 74 - 106 [facility] Comment on above: Performed By: #### 2 24159 #### [facility],[address] [place] [address] LIPID PROFILEon 02-29-2020 Cholesterol [Mass/Vol] 134 mg/dL Normal 0 - 240 [facility] Comment on above: Performed By: #### 2 56667 #### [place] [id number] Cholesterol in HDL [Mass/Vol] 53 mg/dL Normal 40 - 60 [facility] Comment on above: Performed By: #### 2 17620 #### [facility],[address] [place] [address] Cholesterol in LDL [Mass/Vol] 72 mg/dL Normal 0 - 129 [facility] Comment on above: Performed By: #### 2 80516 #### [facility],[address] [place] [address] Cholesterol.total/Choles terol in HDL [Mass ratio] 2.5 {ratio} Normal 0.0 - 5.0 [facility] Comment on above: Performed By: #### 2 24154 #### [facility],[address] [place], [place] [id number] Lipid 1995 panel Normal [facility] Comment on above: Result Comment: LIPI D PROFILE Performed By: #### 2 58339 #### [facility],[address] [place] [address] Triglyceride [Mass/Vol] 45 mg/dL Normal 0 - 150 [facility] Comment on above: Performed By: #### 2 17220 #### [facility],[address] [place] [address] EMERGENCY REPORTon 0 EMERGENCY REPORT [facility] EMERGENCY ROOM REPORT NAME ACCOUNT SEX AGE ADMIT DISCHARGE PT MED. RECORD# NUMBER DATE DATE TYPE FRIEND, CONSTANCE [id number] Amy 07/06/19 07/06/19 3 CHRISTIANO Fabian [id number] ROOM: ER DATE OF : 1995 DICTATING PHYSICIAN: Harvey Ramos ADDENDUM: EMERGENCY DEPARTMENT COURSE AND TREATMENT: I did give the patient a GI cocktail here and his pain has completely resolved. I talked to him about some blood work and a CAT scan and at this point he feels much better. He is comfortable with being treated medically. DIAGNOSIS: Acute gastritis. PLAN/DISPOSITION: I did write him a prescription for Protonix 40 mg one p.o. daily. Dispense #20 with no refill. Pepcid 20 mg one p.o. b.i.d., dispense #30 with no refill. He was given a dose of each prior to discharge. I advised him to avoid spicy or hot foods. Avoid alcohol. Take the medication as prescribed. He does not have a family doctor so I will refer him to follow up with the Internal Medicine clinic in 3-5 days. I did explain that if symptoms persist at some point time down the road he may need endoscopy to look at his stomach, but at this point we will try to treat him medically. If his symptoms become worse, he is to return to the emergency department where we can do a lot more testing. But, at this point, he is pain-free, and I will treat him as gastritis. I felt that he was at low risk for gallstones. His pain is all midline. We discussed all these things in the differential. The patient was discharged in improved clinically stable condition. Nurses' notes reviewed. Dictated By: Harvey Ramos DO 07/06/19 01:05 JOB #: [id number] Transcribed By: mehul 07/06/19 09:49 Electronically signed by: E-Sign: Dr. Harvey Ramos D.O. 07/07/19 00:47 Page 1 of 1 FRIENDCONSTANCE Emergency Room Report CHRISTIANO Fabian Normal [facility] EMERGENCY REPORT [facility] EMERGENCY ROOM REPORT NAME ACCOUNT SEX AGE ADMIT DISCHARGE PT MED. RECORD# NUMBER DATE DATE TYPE FRIENDCONSTANCE [id number] Amy 24 07/06/19 07/06/19 3 CHRISTIANO Fabian [id number] ROOM: ER DATE OF : 1995 DICTATING PHYSICIAN: Harvey Ramos Time Seen: 12:06 a.m. HISTORY OF PRESENT ILLNESS: This is a 24-year-old white male complaining of epigastric abdominal pain that started about 2 hours ago after he ate big stack of fried potatoes. He states that the pain started right away. He rates the pain as a 9 on a severity scale of 1 to 10. He describes the epigastric abdominal pain as burning in nature. It does not radiate through to his back. He denies any history of gallstones. PAST SURGICAL HISTORY: Denies. ALLERGIES: Penicillin. SOCIAL HISTORY: Smoker of one pack per day. He admits to occasional alcohol use. Denies any illicit drug us. He does live at home with family. REVIEW OF SYSTEMS: Denies any chest pain, shortness of breath, cough, sputum, wheezing. He does complain of epigastric abdominal pain. He complains of mild nausea, but denies vomiting, diarrhea, constipation, melena, hematochezia, headache, numbness, unsteady gait, weakness, neck or back pain, joint pain, skin rash or swelling, hives, hayfever, swollen glands. Further review of systems is negative. The patient has a past medical history of asthma. He states that he has passed a kidney stone once in the past. PHYSICAL EXAMINATION: Blood pressure 109/87, pulse 67, respirations 18, temperature 97.9, pulse ox 96%. Weight 125 pounds. The patient is alert and oriented x 3. Appears in some mild distress secondary to epigastric pain, but he is pleasant and cooperative. He sits upon the side of the bed and makes eye contact. HEENT: Head appears atraumatic. Pupils are equal and reactive to light. Red reflex intact bilaterally. Extraocular muscles intact. No conjunctival injection. No scleral icterus or lid edema. Nose: Nose: No rhinorrhea or epistaxis. Mouth: Mucous membranes are moist. No pharyngeal erythema. Uvula is midline and elevates. Neck is supple. Trachea is midline. No JVD or lymphadenopathy. No posterior cervical tenderness. No nuchal rigidity. Lungs are clear to auscultation in all lung francis. No adventitious sounds are noted. No accessory muscle use. CVS: Heart rate and rhythm is regular without murmur. Abdomen is soft with some epigastric Page 1 of 2 CONSTANCE [facility] Emergency Room Report CONSTANCE [place] : 1995 tenderness noted on palpation. Bowel sounds are present x4 quadrants and normoactive. He exhibits some mild voluntary guarding but no involuntary guarding, no rebound. No palpable abdominal mass. No hepatosplenomegaly. Back exhibits no midline or paraspinal region tenderness. No increased paraspinal muscle rigidity. Negative Han sign. Extremities: No edema or cyanosis. Peripheral pulses are intact. No motor or sensory deficits noted. Hand soils engineer are strong and symmetric. Skin is warm and dry. No diaphoresis or rash. Neurologic: The patient is alert and oriented x4. No motor or sensory deficits are noted. Normal speech. No hot potato voice. PLAN/DISPOSITION: Presently, I will give the patient a GI cocktail and then reevaluate. Dictated By: Harvey Ramos DO 07/06/19 00:41 JOB #: [id number] Transcribed By: mehul 07/06/19 09:33 Electronically signed by: E-Sign: Dr. Harvey Ramos D.O. 07/07/19 00:46 Page 2 of 2 CONSTANCE [facility] Emergency Room Report CHRISTIANO Fabian Normal [facility] Vital Signs Date Time Vital Sign Value Performing Clinician Facility 12-27-2024 17:00-0400 Body temperature 98.4 [degF] Dr. Ron Viveros MD Work Phone: [facility] 12-27-2024 17:00-0400 Diastolic blood pressure 78 mm[Hg] Dr. Ron Viveros MD Work Phone: [facility] 12-27-2024 17:00-0400 Heart rate 73 /min Dr. Ron Viveros MD Work Phone: [facility] 12-27-2024 17:00-0400 Respiratory rate 18 /min Dr. Ron Viveros MD Work Phone: [facility] 12-27-2024 17:00-0400 SaO2% (BldA) [Mass fraction] 99 % Dr. Ron Viveros MD Work Phone: [facility] 12-27-2024 17:00-0400 Systolic blood pressure 117 mm[Hg] Dr. Ron Viveros MD Work Phone: [facility] 12-27-2024 09:14-0400 Body height 187.[address] Ron Viveros MD Work Phone: [facility] 12-27-2024 09:14-0400 Body mass index (BMI) [Ratio] 21.9 kg/m2 Dr. Ron Viveros MD Work Phone: [facility] 12-27-2024 09:14-0400 Body weight 77.[address] Ron Viveros MD Work Phone: [facility] 12-26-2024 13:49-0400 Body temperature 99.1 [degF] Adeline Praisler-Wood IT DESKTOP SUPPORT TECHNICIAN.COMMERCIAL REAL ESTATE BROKER Work Phone: [facility] 12-26-2024 13:49-0400 Body weight 58 kg Adeline Praisler-Wood IT DESKTOP SUPPORT TECHNICIAN.COMMERCIAL REAL ESTATE BROKER Work Phone: [facility] 12-26-2024 13:49-0400 Diastolic blood pressure 62 mm[Hg] Adeline Praisler-Wood IT DESKTOP SUPPORT TECHNICIAN.COMMERCIAL REAL ESTATE BROKER Work Phone: [facility] 12-26-2024 13:49-0400 Heart rate 70 /min Adeline Praisler-Wood IT DESKTOP SUPPORT TECHNICIAN.COMMERCIAL REAL ESTATE BROKER Work Phone: [facility] 12-26-2024 13:49-0400 Respiratory rate 18 /min Adeline Praisler-Wood IT DESKTOP SUPPORT TECHNICIAN.COMMERCIAL REAL ESTATE BROKER Work Phone: [facility] 12-26-2024 13:49-0400 SaO2% (BldA) [Mass fraction] 98 % Adeline Schrader APRN.COMMERCIAL REAL ESTATE BROKER Work Phone: [facility] 12-26-2024 13:49-0400 Systolic blood pressure 108 mm[Hg] Adeline Schrader IT DESKTOP SUPPORT TECHNICIAN.COMMERCIAL REAL ESTATE BROKER Work Phone: [facility] 05-24-2024 10:42-0500 Body temperature 100.99 [degF] Noel Nolasco APRN.COMMERCIAL REAL ESTATE BROKER Work Phone: [facility] 05-24-2024 10:42-0500 Body weight 56.8 kg Noel Nolasco APRN.COMMERCIAL REAL ESTATE BROKER Work Phone: [facility] 05-24-2024 10:42-0500 Diastolic blood pressure 60 mm[Hg] Noel Nolasco APRN.COMMERCIAL REAL ESTATE BROKER Work Phone: [facility] 05-24-2024 10:42-0500 Heart rate 72 /min Noel Nolasco APRN.COMMERCIAL REAL ESTATE BROKER Work Phone: [facility] 05-24-2024 10:42-0500 Respiratory rate 16 /min Noel Nolasco APRN.COMMERCIAL REAL ESTATE BROKER Work Phone: [facility] 05-24-2024 10:42-0500 SaO2% (BldA) [Mass fraction] 100 % Noel Nolasco APRN.COMMERCIAL REAL ESTATE BROKER Work Phone: [facility] 05-24-2024 10:42-0500 Systolic blood pressure 106 mm[Hg] Noel Nolasco APRN.COMMERCIAL REAL ESTATE BROKER Work Phone: [facility] 09-29-2023 08:28-0400 Body temperature 97.39 [degF] Noel Nolasco APRN.COMMERCIAL REAL ESTATE BROKER Work Phone: [facility] 09-29-2023 08:28-0400 Body weight 55.3 kg Noel Nolasco APRN.COMMERCIAL REAL ESTATE BROKER Work Phone: [facility] 09-29-2023 08:28-0400 Diastolic blood pressure 66 mm[Hg] Noel Nolasco APRN.COMMERCIAL REAL ESTATE BROKER Work Phone: [facility] 09-29-2023 08:28-0400 Heart rate 68 /min Noel Nolasco APRN.COMMERCIAL REAL ESTATE BROKER Work Phone: [facility] 09-29-2023 08:28-0400 Respiratory rate 16 /min Noel Nolasco APRN.COMMERCIAL REAL ESTATE BROKER Work Phone: [facility] 09-29-2023 08:28-0400 SaO2% (BldA) [Mass fraction] 100 % Noel Nolasco APRN.COMMERCIAL REAL ESTATE BROKER Work Phone: [facility] 09-29-2023 08:28-0400 Systolic blood pressure 110 mm[Hg] Noel Nolasco APRN.COMMERCIAL REAL ESTATE BROKER Work Phone: [facility] 03-25-2022 11:00-0500 Body temperature 99.19 [degF] Nargis Athy PA-C Work Phone: [facility] 03-25-2022 11:00-0500 Body weight 58.06 kg Nargis Athy PA-C Work Phone: [facility] 03-25-2022 11:00-0500 Diastolic blood pressure 60 mm[Hg] Nargis Athy PA-C Work Phone: [facility] 03-25-2022 11:00-0500 Heart rate 66 /min Nargis Athy PA-C Work Phone: [facility] 03-25-2022 11:00-0500 Respiratory rate 16 /min Nargis Athy PA-C Work Phone: [facility] 03-25-2022 11:00-0500 SaO2% (BldA) [Mass fraction] 98 % Nargis Athy PA-C Work Phone: [facility] 03-25-2022 11:00-0500 Systolic blood pressure 102 mm[Hg] Nargis Athy PA-C Work Phone: [facility] 01-07-2022 12:25-0400 Body temperature 98.6 [degF] Jacob Sal IT DESKTOP SUPPORT TECHNICIAN.COMMERCIAL REAL ESTATE BROKER Work Phone: [facility] 01-07-2022 12:25-0400 Body weight 57.79 kg Jacob Huang IT DESKTOP SUPPORT TECHNICIAN.COMMERCIAL REAL ESTATE BROKER Work Phone: [facility] 01-07-2022 12:25-0400 Diastolic blood pressure 78 mm[Hg] Jacob Sal IT DESKTOP SUPPORT TECHNICIAN.COMMERCIAL REAL ESTATE BROKER Work Phone: [facility] 01-07-2022 12:25-0400 Heart rate 60 /min Jacob Sal IT DESKTOP SUPPORT TECHNICIAN.COMMERCIAL REAL ESTATE BROKER Work Phone: [facility] 01-07-2022 12:25-0400 Respiratory rate 16 /min Jacob Huang IT DESKTOP SUPPORT TECHNICIAN.COMMERCIAL REAL ESTATE BROKER Work Phone: [facility] 01-07-2022 12:25-0400 SaO2% (BldA) [Mass fraction] 98 % Jacob Huang IT DESKTOP SUPPORT TECHNICIAN.COMMERCIAL REAL ESTATE BROKER Work Phone: [facility] 01-07-2022 12:25-0400 Systolic blood pressure 114 mm[Hg] Jacob Huang IT DESKTOP SUPPORT TECHNICIAN.COMMERCIAL REAL ESTATE BROKER Work Phone: [facility] 12-25-2021 16:29-0400 Body temperature 98.8 [degF] Ted Mcknight MD Work Phone: [facility] 12-25-2021 16:29-0400 Body weight 55.16 kg Ted Mcknight MD Work Phone: [facility] 12-25-2021 16:29-0400 Diastolic blood pressure 80 mm[Hg] Ted Mcknight MD Work Phone: [facility] 12-25-2021 16:29-0400 Heart rate 60 /min Ted Mcknight MD Work Phone: [facility] 12-25-2021 16:29-0400 Respiratory rate 16 /min Ted Mcknight MD Work Phone: [facility] 12-25-2021 16:29-0400 SaO2% (BldA) [Mass fraction] 98 % Ted Mcknight MD Work Phone: [facility] 12-25-2021 16:29-0400 Systolic blood pressure 122 mm[Hg] Ted Mcknight MD Work Phone: [facility] Encounters Encounter Date Encounter Type Care Provider Facility Start: 12-27-2024 End: 12-30-2024 Evaluation and management of inpatient MRACELLE FLORES Facility:[id number] Start: 12-27-2024 End: 12-27-2024 Orders Only Benjamín Morales DDS Work Phone: Dentistry Start: 12-27-2024 End: 12-27-2024 Emergency department patient visit Dr. Ron Viveros MD Work Phone: -Emergency Department Work Phone: Start: 12-26-2024 End: 12-26-2024 [facility] NARANJOCOMMERCIAL REAL ESTATE BROKER Work Phone: [facility] Comment on above: Pain, dental (Primar y Dx); Cellulitis and abscess of oral soft tissues; Allergy to penicillin Start: 12-26-2024 End: 12-27-2024 ambulatory [facility] Facility:[facility] Start: 05-26-2024 End: 05-26-2024 Emergency department patient visit Ron Viveros Facility:[facility] Start: 05-24-2024 End: 05-24-2024 Telephone encounter Mala SOLARES Work Phone: [facility] Comment on above: Results Start: 05-24-2024 End: 05-24-2024 [facility] Start: 05-24-2024 End: 05-24-2024 Patient encounter procedure Noel Nolasco APRN.COMMERCIAL REAL ESTATE BROKER Work Phone: [facility] Comment on above: URI, acute (Primary Dx) Start: 09-29-2023 End: 09-29-2023 Patient encounter procedure Noel Nolasco APRN.COMMERCIAL REAL ESTATE BROKER Work Phone: [facility] Comment on above: Puncture wound (Prim brannon Dx) Start: 05-08-2022 End: 05-13-[address] SARTHAK BAILEY MD Facility:[facility] Start: 05-08-2022 End: 05-09-2022 ambulatory BRITTANY TRONCOSO [facility] Start: 03-25-2022 End: 03-25-2022 Patient encounter procedure Nargis Edmonds PA-C Work Phone: [facility] Comment on above: Influenza-like illne ss (Primary Dx) Start: 01-07-2022 End: 01-07-2022 Patient encounter procedure Jacob Huang MILAN.COMMERCIAL REAL ESTATE BROKER Work Phone: [facility] Comment on above: Sore throat (Primary Dx); URI, acute Start: 12-25-2021 End: 12-25-2021 Patient encounter procedure Ted Mcknight MD Work Phone: [facility] Comment on above: Headache, unspecifie d headache type (Primary Dx) Start: 05-29-2020 End: 05-29-2020 Patient encounter procedure PHIL Boone THUY [facility] Start: 02-29-2020 End: 02-29-2020 Patient encounter procedure [facility] Start: 01-17-2020 End: 01-17-2020 Emergency department patient visit Leenetta Benz Facility:[facility] Start: 07-06-2019 End: 07-06-2019 Emergency department patient visit DOCTOR [facility] Procedures Date Procedure Procedure Detail Performing Clinician Start: 12-27-2024 CT of soft tissues o f neck with contrast Dr. Ron Viveros MD Work Phone: Start: 12-27-[address] Ron Viveros MD Work Phone: Start: 01-07-2022 STREP A MOLECULAR (POC) [facility] Provider Plan of Treatment Date Care Activity Detail Author Start: 09-28-2033 Urine microalbumin profile DTaP,Tdap,Td Vaccine (9 - Td or Tdap) [facility] Start: 12-28-2024 End: 12-28-2024 Intraoral i&d tongue/floor submndblr space INCISION AND DRAINAGE FLOOR OF MOUTH IN SUBMANDIBULAR SPACE Submandibular abscess 12/28/2024 3:31 AM EDT MR OR Start: 12-28-2024 End: 12-28-2024 Unlisted procedure dentoalveolar structures EXTRACTION TEETH Submandibular abscess 12/28/2024 3:31 AM EDT MR OR Start: 12-27-2024 [facility] Start: 12-19-2024 Influenza vaccination Influenza Vacc ine (#1) [facility] Start: 12-20-2023 Covid-19 Vaccine ( season) Covid-19 Vaccine ( season) [facility] Start: 12-20-2023 Influenza vaccination [facility] Start: 04-20-2023 Behavioral Health Screening Behavioral Health Screening [facility] Start: 12-19-2022 Covid-19 Vaccine ( season) Covid-19 Vaccine ( season) [facility] Start: 03-25-2022 End: 04-08-2022 Influenza virus A and B RNA and SARS-CoV-2 (COVID-19) N gene panel - Respiratory specimen by ORTIZ with probe detection [facility] Work Phone: Comment on above: Expected: 03/25/2022 , Expires: 04/08/2022 Start: 12-19-2021 Influenza vaccination INFLUENZA (#1) [facility] Start: 07-20-2021 Urine microalbumin profile DTAP,TDAP,TD (7 - Td or Tdap) [facility] Start: 04-20-2021 DEPRESSION ASSESSMENT DEPRESSION ASS ESSMENT [facility] Start: 2015 Pneumococcal vaccination Pneum ococcal Vaccine (1 of 2 - PCV) [facility] Start: 2014 ANNUAL PCP TEAM HOSPITAL WELLNESS COORDINATOR [place] DISEASE VISIT ANNUAL PCP TEAM CHRONIC DISEASE VISIT [facility] Start: 2014 Anxiety Screening Anxiety Screening [facility] Start: 2014 Depression Screening Depression Scre ening [facility] Start: 2014 HEPATITIS C SCREENING HEPATITIS C [facility] Start: 2014 Hepatitis C screening Hepatitis C [facility] Start: 2014 SPIROMETRY SPIROMETRY [facility] Start: 2010 PEDS TO ADULT TRANSI TION ANNUAL ASSESSMENT PEDS TO ADULT TRANSITION ANNUAL ASSESSMENT [facility] Start: 2008 Adult depression screening assessment DEPRESSION SCREENING [facility] Start: 2008 PEDS TO ADULT TRANSI TION INITIAL DISCUSSION PEDS TO ADULT TRANSITION INITIAL DISCUSSION [facility] Start: 2002 PNEUMOCOCCAL (1 - PCV) PNEUMOCOCCAL (1 - PCV) [facility] Start: 2002 Pneumococcal vaccination Pneum ococcal Vaccine (1 of 2 - PCV) [facility] Start: 1996 COVID-19 VACCINE (#1) COVID-19 VACCI NE (#1) [facility] ALERE STREP A TEST (AG) ALERE ST REP A TEST (AG) Lab Routine Sore throat Ordered: 01/07/2022 [facility] Work Phone: Comment on above: Ordered: 01/07/2022 COVID & INFLUENZA A/ B & RSV PCR, ROUTINE COVID & INFLUENZA A/B & RSV PCR, ROUTINE Microbiology Routine URI, acute 05/24/2024 10:57 AM EST [facility] Work Phone: Influenza virus A an d B RNA and SARS-CoV-2 (COVID-19) N gene panel - Respiratory specimen by ORTIZ with probe detection COVID WITH FLUA+B, ROUTINE Microbiology Routine URI, acute Ordered: 01/07/2022 [facility] Work Phone: Comment on above: Ordered: 01/07/2022 Immunizations Immunization Date Immunization Notes Care Provider Fili alexis 09-29-2023 tetanus toxoid, redu antwon diphtheria toxoid, and acellular pertussis vaccine, adsorbed Noel Nolasco APRN.CNP Work Phone: [facility] 06-30-2014 tetanus toxoid, redu antwon diphtheria toxoid, and acellular pertussis vaccine, adsorbed Dr. Ron Viveros MD Work Phone: [facility] 08-03-2013 meningococcal polysaccharide (groups A, C, Y and W-135) diphtheria toxoid conjugate vaccine (MCV4P) Ted Mcknight MD Work Phone: [facility] Work Phone: 01-24-2013 influenza virus vacc ine, unspecified formulation Ted Mcknight MD Work Phone: [facility] Work Phone: 04-02-2012 influenza virus vacc ine, unspecified formulation Ted Mcknight MD Work Phone: [facility] 02-03-2012 human papilloma viru s vaccine, quadrivalent Ted Mcknight MD Work Phone: [facility] 09-29-2011 human papilloma viru s vaccine, quadrivalent Ted Mcknight MD Work Phone: [facility] 07-21-2011 human papilloma viru s vaccine, shayyivalent Ted Mcknight MD Work Phone: [facility] 07-21-2011 tetanus toxoid, redu antwon diphtheria toxoid, and acellular pertussis vaccine, adsorbed Ted Mcknight MD Work Phone: [facility] 12-08-2005 tuberculin skin test ; purified protein derivative solution, intradermal Noel Nolasco APRN.CNP Work Phone: [facility] 12-08-2005 varicella virus vaccine Chavo Mcknight MD Work Phone: [facility] 05-25-2000 diphtheria, tetanus toxoids and acellular pertussis vaccine Ted Mcknight MD Work Phone: [facility] 05-25-2000 measles, mumps and rubella virus vaccine Ted Mcknight MD Work Phone: [facility] 03-06-1999 influenza, seasonal, injectable Ted Mcknight MD Work Phone: [facility] 10-05-1997 diphtheria, tetanus toxoids and acellular pertussis vaccine Ted Mcknight MD Work Phone: [facility] 10-05-1997 haemophilus influenz ae type b vaccine, HbOC conjugate Ted Mcknight MD Work Phone: [facility] 10-05-1997 measles, mumps and rubella virus vaccine Ted Mcknight MD Work Phone: [facility] 10-05-1997 poliovirus vaccine, inactivated Ted Mcknight MD Work Phone: [facility] 10-05-1997 tuberculin skin test ; purified protein derivative solution, intradermal Noel Nolasco APRN.CNP Work Phone: [facility] 03-20-1997 influenza, seasonal, injectable Ted Mcknight MD Work Phone: [facility] 03-20-1997 varicella virus vaccine Chavo Mcknight MD Work Phone: [facility] 1996 diphtheria, tetanus toxoids and acellular pertussis vaccine Ted Mcknight MD Work Phone: [facility] 1996 haemophilus influenz ae type b vaccine, HbOC conjugate Ted Mcknight MD Work Phone: [facility] 1996 hepatitis B vaccine, pediatric or pediatric/adolescent dosage Ted Mcknight MD Work Phone: [facility] 1996 poliovirus vaccine, inactivated Ted Mcknight MD Work Phone: [facility] 1996 diphtheria, tetanus toxoids and acellular pertussis vaccine Ted Mcknight MD Work Phone: [facility] 1996 haemophilus influenz ae type b vaccine, HbOC conjugate Ted Mcknight MD Work Phone: [facility] 1996 poliovirus vaccine, inactivated Ted Mcknight MD Work Phone: [facility] 1996 diphtheria, tetanus toxoids and acellular pertussis vaccine Ted Mcknight MD Work Phone: [facility] 1996 haemophilus influenz ae type b vaccine, HbOC conjugate Ted Mcknight MD Work Phone: [facility] 1996 hepatitis B vaccine, pediatric or pediatric/adolescent dosage Ted Mcknight MD Work Phone: [facility] 1996 poliovirus vaccine, inactivated Ted Mcknight MD Work Phone: [facility] 1996 hepatitis B vaccine, pediatric or pediatric/adolescent dosage Ted Mcknight MD Work Phone: [facility] Payers Date Payer Category Payer Private Health Insurance [id number] 2020 Private Health Insurance [id number] 2020 Self-pay 2017 Medicaid [id number] 1996 Unknown [id number] 1996 Unknown [id number] 1996 Unknown [id number] 1996 Unknown [id number] Unknown [id number] Unknown [id number] Unknown [id number] Unknown [id number] Social History Date Type Detail Facility Start: 01-25-2021 End: 01-07-2022 Tobacco smoking status LAIS Smokes tobacco daily [facility] Work Phone: Start: 01-25-2021 End: 01-07-2022 Tobacco use and exposure Smokeless tobacco non-user [facility] Work Phone: Start: 12-25-2021 End: 12-26-2024 Alcohol intake Current non-drinker of alcohol (finding) [facility] Start: 07-21-2011 End: 01-07-2022 Tobacco Comment stepfather outdoors, still passive smoker [facility] Start: 1996 Sex Assigned At Not on file [facility] Start: 01-25-2021 End: 09-29-2023 History of Social function [facility] Start: 01-25-2021 End: 09-29-2023 Tobacco use panel [facility] Start: 03-21-2012 National Score (1-100), lower number is lower risk Not on file [facility] Start: 12-27-2024 Tobacco smoking stat us LAIS Current Heavy tobacco smoker [facility] Start: 11-11-2018 Alcohol Alcohol [facility] Start: 11-11-2018 Lives Lives [facility] Start: 1996 Sex Assigned At Male [facility] Goals Date Patient Goal Desired Activity /State Personal health goal Functional Status Date Assessment Result Facility 10-12-2014 Are you deaf, or do you have serious difficulty hearing No 10/12/2014 1:26 PM EDT Kemal Qureshi Cma No [facility] 10-12-2014 Are you blind, or do you have serious difficulty seeing, even when wearing glasses No 10/12/2014 1:26 PM EDT Kemal Qureshi Cma No [facility] 10-12-2014 Do you have serious difficulty walking or climbing stairs No 10/12/2014 1:26 PM EDT Kemal Qureshi Cma L No [facility] 10-12-2014 Do you have difficul ty dressing or bathing No 10/12/2014 1:26 PM EDT Sloan Qureshi Cmai L No [facility] 10-12-2014 Because of a physica l, mental, or emotional condition, do you have difficulty doing errands alone such as visiting a physician's office or shopping No 10/12/2014 1:26 PM EDT Kemal Qureshi Cma L No [facility] Mental Status Date Assessment Result Facility 10-12-2014 Because of a physica l, mental, or emotional condition, do you have serious difficulty concentrating, remembering, or making decisions Yes 10/12/2014 1:26 PM EDT Kemal Qureshi Cma Yes [facility] Clinical Notes 12-25-2021 to 12-30-2024 Note Date & Type Note Facility 12-30-2024 Note HNO ID: [id number] Author: JACKIE CARDENAS LSW Service: Care Management Author Type: Forensic Audit Expert Type: Care Mgt Progress Note Filed: 12/30/2024 10:27 Note Text: CARE MANAGEMENT DISCHARGE NOTE SERVICE DATE: December 30, 2024 SERVICE TIME: 10:25 AM Admission Date: 12/27/2024 LOS: 3 days Discharge Arrangement Patient discharging home this date with outpatient follow up with dental. No needs. Patient refusing assistance setting up appt for new PCP He has transport home via family car. 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 He continue to improve clinically, morning labs are pending. Cultures with few + cocci, rare negative and positive bacilli, final results pending. Appreciate IDs recommendations, on Levofloxacin and flagyl. Okay for discharge home. Wound care was discussed. Follow up with me next Thursday. SUBJECTIVE CHIEF COMPLAINT: I am feeling much better. The swelling under my tongue is much better. I am eating and only have pain at the extraction site. MEDICATIONS: Current Facility-Administered Medications Medication Dose Route Frequency NaCl 0.9% iv flush bag 20 mL INTRAVENOUS PRN ondansetron (PF) 4 mg injection (ZOFRAN) 4 mg INTRAVENOUS q 6 H PRN albuterol HFA 90 mcg/actuation 2 puff (PROVENTIL HFA, VENTOLIN HFA) 2 puff INHALATION q 4 H PRN morphine 2 mg injection 2 mg INTRAVENOUS q 4 H PRN acetaminophen 650 mg CUP (TYLENOL) 650 mg ORAL q 4 H PRN ibuprofen 400 mg tab(s) (MOTRIN) 400 mg ORAL q 6 H PRN lactated ringers iv infusion 75 mL/hr INTRAVENOUS CONTINUOUS Chlorhexidine Gluconate 0.12 % 15 mL (PERIDEX) 15 mL ORAL q 6 H metroNIDAZOLE 500 mg tab(s) (FLAGYL) 500 mg ORAL q 8 H levoFLOXacin 500 mg tab(s) (LEVAQUIN) 500 mg ORAL DAILY (6 AM) OBJECTIVE PHYSICAL EXAM: Patient Vitals for the past 24 hrs: BP Temp Temp src Pulse Resp SpO2 12/30/24 0547 101/57 36.6 ?C (97.8 ?F) -- (!) 48 -- 100 % 12/29/24 2319 114/68 36.4 ?C (97.5 ?F) -- (!) 52 -- 99 % 12/29/24 1941 108/62 36.7 ?C (98.1 ?F) -- (!) 50 -- 98 % 12/29/24 1551 111/65 36.5 ?C (97.7 ?F) Oral (!) 56 18 99 % 12/29/24 1237 111/60 36.3 ?C (97.4 ?F) Axillary (!) 55 18 98 % Body mass index is 17.38 kg/m?. HEENT: Minimal left submandibular edema. No submental or right submandibular edema. VIRAJ 30mm. Oropharynx is clear with uvula midline. Improved lingual edema and less tender on palpation. Neuro: CN II-XII grossly intact SIGNATURE: Christie Manzo DMD PATIENT NAME: Constance Anton DATE: December 30, 2024 TIME: 6:12 AM PAGER/CONTACT #: [phone] [facility] 12-29-2024 Note HNO ID: [id number] Author: MARY KELLEY LSW Service: Care Management Author Type: Forensic Audit Expert Type: Care Mgt Progress Note Filed: 12/29/2024 15:39 Note Text: CARE MANAGEMENT PROGRESS NOTE SERVICE DATE: 12/29/2024 SERVICE TIME: 3:37 PM LOS: 2 days Chart reviewed. Met with patient and his , Renay in room. Per self report patient independent with ADL's and IADL's. No use of DME. He reports no needs and does not have a PCP, does not want to get arranged with one- stats he does not go to the doctor. He does have insurance. Plan is to return home at D/C no needs anticipated. CM to follow. SIGNATURE: NIKOLAS Price PATIENT NAME: Constance Anton DATE: December 29, 2024 TIME: 3:37 PM [facility] 12-29-2024 Note HNO ID: [id number] Author: NATALI PARRISH MD Service: Hospital Medicine Author Type: Physician Type: Progress Notes Filed: 12/29/2024 11:02 Note Text: INPATIENT PROGRESS NOTE SERVICE DATE: 12/29/2024 Subjective Seen and examined No pain or fever or chill Feels much better Current Facility-Administered Medications Medication Dose Route Frequency NaCl 0.9% iv flush bag 20 mL INTRAVENOUS PRN ondansetron (PF) 4 mg injection (ZOFRAN) 4 mg INTRAVENOUS q 6 H PRN albuterol HFA 90 mcg/actuation 2 puff (PROVENTIL HFA, VENTOLIN HFA) 2 puff INHALATION q 4 H PRN morphine 2 mg injection 2 mg INTRAVENOUS q 4 H PRN acetaminophen 650 mg CUP (TYLENOL) 650 mg ORAL q 4 H PRN ibuprofen 400 mg tab(s) (MOTRIN) 400 mg ORAL q 6 H PRN lactated ringers iv infusion 75 mL/hr INTRAVENOUS CONTINUOUS Chlorhexidine Gluconate 0.12 % 15 mL (PERIDEX) 15 mL ORAL q 6 H dexAMETHasone sodium phosphate 8 mg injection (DECADRON) 8 mg INTRAVENOUS q 8 H metroNIDAZOLE 500 mg tab(s) (FLAGYL) 500 mg ORAL q 8 H [START ON 12/30/2024] levoFLOXacin 500 mg tab(s) (LEVAQUIN) 500 mg ORAL DAILY (6 AM) Objective PHYSICAL EXAM: General: Patient is alert and oriented x3 and is in no acute respiratory distress HEENT: Left check mild swelling Lungs: Clear to auscultation, no wheezing, rales, or rhonchi. Cardiac: Regular rhythm and rate, S1-S2 within normal limits, no murmurs, gallops were appreciated, no rubs. Abdomen: Soft, nontender, nondistended, no HSM detected, bowel sounds are active. Extremities: [No edema, cyanosis, or clubbing. Skin: No rashes or breakdown. Musculoskeletal: normal MS exam, moves all extremities, DTR's normal Lymphatic: Negative cervical, supra-clavicular, groin lymphadenopathy. Neurologic: Cranial nerves from II-XII intact grossly, no focal deficits. Glucose (mg/dL) Date Value 12/29/2024 130 Potassium (mmol/L) Date Value 12/29/2024 3.9 Sodium (mmol/L) Date Value 12/29/2024 140 Chloride (mmol/L) Date Value 12/29/2024 105 CO2 (mmol/L) Date Value 12/29/2024 27 Creatinine (mg/dL) Date Value 12/29/2024 0.66 BUN (mg/dL) Date Value 12/29/2024 11 Anion Gap (mmol/L) Date Value 12/29/2024 8 Calcium, Total (mg/dL) Date Value 12/29/2024 9.5 Estimated Creatinine Clearance: 144.7 mL/min (based on SCr of 0.66 mg/dL). BP 104/58 Pulse 52 Temp (Src) 98 (Oral) Resp 18 Ht 6' 2 (1.88m) Wt 135 lb 5.8 oz (61.4kg) SpO2 100% BMI 17.37 kg/(m2). O2 Therapy: Room Air DATA: Diagnostic tests reviewed for today's visit: Most recent labs and imaging results. Assessment/Plan Principal Problem: Submandibular abscess - 29-year-old male admitted for [place]'s angina -CT head and neck showed early developing abscess in the floor of the mouth -Patient is allergic to penicillins and cephalosporins. Patient seen by ID and recommending Levaquin and Flagyl -Patient seen by OMFS IANDD of the left sublingual and submandibular space with extraction of tooth 18 done on 12/28. [] ID and ENT recommended 1 more day of inpatient antibiotics. Continue on levofloxacin 500 along with metronidazole 500 3 times daily. 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 He continue to improve clinically, but WBC remains elevated, which may be related to steroids yesterday. Cultures with few + cocci, rare negative and positive bacilli, final results pending. Appreciate IDs recommendations, on Levofloxacin and flagyl. Recommend one additional day of IV antibiotics prior to discharge home. SUBJECTIVE CHIEF COMPLAINT: I am feeling much better, but the back of my tongue still feels swollen. Tolerating PO. MEDICATIONS: Current Facility-Administered Medications Medication Dose Route Frequency levoFLOXacin iv piggyback 500 mg in D5W 100 mL (LEVAQUIN) 500 mg INTRAVENOUS DAILY NaCl 0.9% iv flush bag 20 mL INTRAVENOUS PRN ondansetron (PF) 4 mg injection (ZOFRAN) 4 mg INTRAVENOUS q 6 H PRN albuterol HFA 90 mcg/actuation 2 puff (PROVENTIL HFA, VENTOLIN HFA) 2 puff INHALATION q 4 H PRN morphine 2 mg injection 2 mg INTRAVENOUS q 4 H PRN acetaminophen 650 mg CUP (TYLENOL) 650 mg ORAL q 4 H PRN ibuprofen 400 mg tab(s) (MOTRIN) 400 mg ORAL q 6 H PRN lactated ringers iv infusion 75 mL/hr INTRAVENOUS CONTINUOUS Chlorhexidine Gluconate 0.12 % 15 mL (PERIDEX) 15 mL ORAL q 6 H dexAMETHasone sodium phosphate 8 mg injection (DECADRON) 8 mg INTRAVENOUS q 8 H metroNIDAZOLE iv piggyback 500 mg in NaCl (iso-osmotic) 100 mL (FLAGYL) 500 mg INTRAVENOUS q 8 H OBJECTIVE PHYSICAL EXAM: Patient Vitals for the past 24 hrs: BP Temp Temp src Pulse Resp SpO2 Weight 12/29/24 0451 104/58 36.7 ?C (98 ?F) Oral (!) 52 18 100 % -- 12/29/24 0054 -- -- -- -- -- -- 61.4 kg (135 lb 5.8 oz) 12/28/24 2310 117/73 36.7 ?C (98 ?F) Oral (!) 54 19 98 % -- 12/28/24 1945 108/69 37 ?C (98.6 ?F) Oral 63 18 99 % -- 12/28/24 1549 104/63 36.9 ?C (98.5 ?F) Oral 63 19 98 % -- 12/28/24 1503 114/70 37.2 ?C (98.9 ?F) Oral 69 14 98 % -- 12/28/24 1251 -- -- -- -- 16 -- -- 12/28/24 1155 120/66 37.1 ?C (98.7 ?F) Oral 70 16 97 % -- 12/28/24 0747 101/65 36.8 ?C (98.3 ?F) Oral 80 16 100 % -- Body mass index is 17.38 kg/m?. HEENT: Minimal left submandibular edema. No submental or right submandibular edema. Uday drains intact with minimal serosanginous drainage. Drains were removed. VIRAJ 30mm. Oropharynx is clear with uvula midline. Minimal ooze from extraction site. Improved lingual edema and less tender on palpation. Neuro: CN II-XII grossly intact DATA: Diagnostic tests reviewed for today's visit: Most recent labs and imaging results. Recent Labs 12/29/24 0459 12/28/24 0546 12/27/24 1812 WBC 13.51* 12.47* -- HB 13.1 11.0* -- HCT 37.9* 31.4* -- PLT 367 280 -- NA 140 -- 145 K 3.9 -- 3.8 CHLOR 105 -- 107 CO2 27 -- 26 BUN 11 -- 12 CREAT 0.66 -- 0.81 GLUC 130* -- 112* CA 9.5 -- 9.6 MG -- 1.8 -- SIGNATURE: Christie Manzo DMD PATIENT NAME: Constance Anton DATE: December 29, 2024 TIME: 6:50 AM PAGER/CONTACT #: [phone] [facility] 12-28-2024 Note HNO ID: [id number] Author: MARCELLE FLORES MD Service: Hospital Medicine Author Type: Physician Type: Progress Notes Filed: 12/28/2024 13:03 Note Text: DEPARTMENT OF HOSPITAL MEDICINE PROGRESS NOTE SERVICE DATE: 12/28/2024 SERVICE TIME: 12:59 PM Hospital Medicine/Primary Attending: Marcelle Flores MD PRIMARY CARE PHYSICIAN: No primary care provider on file. Readmission: Highest Readmission Risk Score: 10 Subjective Patient seen and examined at bedside this morning. No acute overnight events. Patient states he feels much better today Current Facility-Administered Medications Medication Dose Route Frequency levoFLOXacin iv piggyback 500 mg in D5W 100 mL (LEVAQUIN) 500 mg INTRAVENOUS DAILY NaCl 0.9% iv flush bag 20 mL INTRAVENOUS PRN ondansetron (PF) 4 mg injection (ZOFRAN) 4 mg INTRAVENOUS q 6 H PRN albuterol HFA 90 mcg/actuation 2 puff (PROVENTIL HFA, VENTOLIN HFA) 2 puff INHALATION q 4 H PRN morphine 2 mg injection 2 mg INTRAVENOUS q 4 H PRN acetaminophen 650 mg CUP (TYLENOL) 650 mg ORAL q 4 H PRN ibuprofen 400 mg tab(s) (MOTRIN) 400 mg ORAL q 6 H PRN lactated ringers iv infusion 75 mL/hr INTRAVENOUS CONTINUOUS Chlorhexidine Gluconate 0.12 % 15 mL (PERIDEX) 15 mL ORAL q 6 H dexAMETHasone sodium phosphate 8 mg injection (DECADRON) 8 mg INTRAVENOUS q 8 H metroNIDAZOLE iv piggyback 500 mg in NaCl (iso-osmotic) 100 mL (FLAGYL) 500 mg INTRAVENOUS q 8 H Objective PHYSICAL EXAM: BP 120/66 Pulse 70 Temp (Src) 98.7 (Oral) Resp 16 Ht 6' 2 (1.88m) Wt 127 lb 13.9 oz (58.0kg) SpO2 97% BMI 16.41 kg/(m2). O2 Therapy: Room Air Physical Exam Performed GENERAL: Alert, no distress, cooperative LUNGS: Lungs clear to auscultation, Good diaphragmatic excursion CARDIAC: Normal S1 and S2; no rubs, murmurs, or gallops ABDOMEN: Abdomen soft, non-tender, BS normal, No masses or organomegaly EXTREMITIES: Extremities normal, no deformities, edema, clubbing or skin discoloration. Good capillary refill., No ulcers NEURO: Gait normal. Reflexes normal and symmetric. Sensation grossly intact, Cranial nerves II-XII intact Lines, Drains, and Airways Line Duration Peripheral 12/27/24 External Facility Short Left Antecubital 18 Gauge 1 day Peripheral 12/27/24 External Facility Short Right Antecubital 18 Gauge 1 day DATA: Diagnostic tests reviewed for today's visit: Most recent labs Most recent imaging Most recent EKG Assessment/Plan Problem List [place]'s angina (POA: Yes) HOSPITAL COURSE: Cnostance Alvarado Friend is a 29 year old male Principal Problem: Submandibular abscess - 29-year-old male admitted for [place]'s angina -CT head and neck showed early developing abscess in the floor of the mouth -Patient is allergic to penicillins and cephalosporins. Patient seen by ID and recommending Levaquin and Flagyl -Patient seen by OMFS IANDD of the left sublingual and submandibular space with extraction of tooth 18 done on 12/28. Drain is placed - Patient symptoms are improved after the procedure -Will continue morphine and Zofran as needed - Patient started on soft diet Asthma - Not in acute exacerbation - Will continue home albuterol inhaler High risk medications reviewed for toxicity? Yes Personally discussed plan with consultants? Yes Reviewed imaging/tests? Yes Anticipated Discharge Order Placed: Yes Disposition: To be determined Diet: Orders Placed This Encounter DIET FOOD CONSISTENCY CONTROLLED Standing Status: Standing Number of Occurrences: 1 Food Consistency: DENTAL SOFT VTE Prophylaxis: VTE prophylaxis appropriate Code Status: Code Status: Full Code Plan of care discussed with Provider, RN, Patient Disclaimer This dictation was created using voice recognition software. Phonetic and/or minor grammatical errors may exist. 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 Will add 2 doses of Decadron due to sublingual edema. If continuing to improve may remove drains tomorrow. Cultures with few + cocci, rare negative and positive bacilli. On Levaquin and vancomycin. Given multiple antibiotic allergies and intolerance, recommend ID input on antibiotic management. SUBJECTIVE CHIEF COMPLAINT: The patient has not yet taken PO. He reports numbness on the left lower lip and chin is wearing off and pain has improved, but he has pain on swallowing. MEDICATIONS: Current Facility-Administered Medications Medication Dose Route Frequency vancomycin dosing and monitoring per pharmacy OTHER As Directed levoFLOXacin iv piggyback 500 mg in D5W 100 mL (LEVAQUIN) 500 mg INTRAVENOUS DAILY NaCl 0.9% iv flush bag 20 mL INTRAVENOUS PRN ondansetron (PF) 4 mg injection (ZOFRAN) 4 mg INTRAVENOUS q 6 H PRN albuterol HFA 90 mcg/actuation 2 puff (PROVENTIL HFA, VENTOLIN HFA) 2 puff INHALATION q 4 H PRN vancomycin iv piggyback 1 g in D5W 200 mL (VANCOCIN) 1 g INTRAVENOUS q 12 HR morphine 2 mg injection 2 mg INTRAVENOUS q 4 H PRN acetaminophen 650 mg CUP (TYLENOL) 650 mg ORAL q 4 H PRN ibuprofen 400 mg tab(s) (MOTRIN) 400 mg ORAL q 6 H PRN lactated ringers iv infusion 125 mL/hr INTRAVENOUS CONTINUOUS Chlorhexidine Gluconate 0.12 % 15 mL (PERIDEX) 15 mL ORAL q 6 H dexAMETHasone sodium phosphate 8 mg injection (DECADRON) 8 mg INTRAVENOUS q 8 H OBJECTIVE PHYSICAL EXAM: Patient Vitals for the past 24 hrs: BP Temp Temp src Pulse Resp SpO2 Height Weight 12/28/24 0747 101/65 36.8 ?C (98.3 ?F) Oral 80 16 100 % -- -- 12/28/24 0516 108/64 36.9 ?C (98.5 ?F) Oral 77 16 96 % -- -- 12/28/24 0442 118/59 -- -- 83 16 96 % -- -- 12/28/24 0430 116/59 37 ?C (98.6 ?F) Temporal 93 16 99 % -- -- 12/28/24 0238 114/68 -- -- 79 16 100 % -- -- 12/27/24 2321 111/67 37.4 ?C (99.4 ?F) Oral 76 21 98 % -- -- 12/27/24 2145 96/60 -- -- 69 18 99 % -- -- 12/27/24 2033 104/64 36.2 ?C (97.2 ?F) Oral 72 18 99 % -- -- 12/27/24 1855 -- -- -- -- -- -- 188 cm (6' 2) 58 kg (127 lb 13.9 oz) 12/27/24 181 112/63 36.7 ?C (98 ?F) Oral 77 -- 100 % -- -- Body mass index is 16.42 kg/m?. General: Pleasant and cooperative, well developed, well nourished, and no evidence of acute distress Orientation: person, place, time and situation HEENT: Minimal left submandibular edema. No submental or right submandibular edema. Fisher drains intact with bloody drainage. VIRAJ 25mm. Oropharynx is clear with uvula midline. Minimal ooze from extraction site. Moderate lingual edema. DATA: Diagnostic tests reviewed for today's visit: Wound cultures gram stain with few + cocci, rare negative and positive bacilli. Recent Labs 12/28/24 0546 12/27/241811 WBC 12.47* -- HB 11.0* -- HCT 31.4* -- PLT 280 -- NA -- 145 K -- 3.8 CHLOR -- 107 CO2 -- 26 BUN -- 12 CREAT -- 0.81 GLUC -- 112* CA -- 9.6 MG 1.8 -- SIGNATURE: Christie Manzo DMD PATIENT NAME: Constance Anton DATE: December 28, 2024 TIME: 9:13 AM PAGER/CONTACT #: [phone] [facility] 12-28-2024 Note HNO ID: [id number] Author: REG CARLSON AA Service: ? Author Type: Corrugated Fastener Driver Type: Anesthesia Procedure Notes Filed: 12/28/2024 03:44 Note Text: ANESTHESIOLOGY PROCEDURE NOTE Airway General Information Procedure Start Time/Medication Administration: 12/28/2024 3:33 AM Procedure End Time: 12/28/2024 3:33 AM Patient location during procedure: OR Timeout Performed Pre-procedure: timeout performed Consent Obtained: Yes Patient identity confirmed: arm band and patient Staffing Anesthesiologist: Carloz Mansfield MD CAA: Reg Carlson AA Performed by: VERO Indications and Patient Condition Indications for airway management: anesthesia and airway protection Preoxygenated: yes anesthesia circuit Patient position: sniffing Method: modified rapid sequence Cricoid Pressure: Yes Manual In-Line Stabilization: No Final Airway Details Final airway type: endotracheal airwayFinal Endotracheal Airway: ETT Cuffed: yes Successful intubation technique: video laryngoscopy Devices used: Cabrales and intubating stylet Endotracheal tube insertion site: oral Blade: Krissy Blade size: #3 ETT size (mm): 7.5 Measured from: teeth Measurement (cm): 23 Placement verified by: chest auscultation and capnometry Cormack-Lehane Classification: grade I - full view of glottis Number of attempts at approach: 1 Failed airway: no Unrecognized esophageal intubation: no Airway not difficult SIGNATURE: NATALIE Almendarez PATIENT NAME: Constance Anton DATE: December 28, 2024 TIME: 3:39 AM CSN: [id number] [facility] 12-27-2024 Note HNO ID: [id number] Author: ALEX RIVERA DO Service: Hospital Medicine Author Type: Physician Type: Plan of Care Filed: 12/27/2024 22:50 Note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
--- NOTE | 2025-01-20 21:20 | EX.ED.UPPERE ---
HPI History of Present Illness HPI Narrative: 29-year-old male [id number]. Was helping a friend move. A dresser fell on his hand causing pain and swelling of his left hand this afternoon. He is right-hand dominant. He is never had a fracture or surgery to his left hand. Denies other injuries. Chief Complaint: Upper Extremity Injury Informant: patient Occured/Mechanism Mechanism/Context: Yes injury and Yes blunt trauma Onset/Context/Timing Onset: Today and Hours Context: Sudden Onset Timing: Continuous Quality of Pain: Sharp Current Severity: Moderate Maximum Severity: Moderate Associated Symptoms Associated Symptoms: Negative for Parasthesia, Weakness or Loss of Funtion Narrative Narrative: 29-year-old male left hand injury. Prior similar symptoms: No Recent Illness/Hospitalization: No PFSH PFSH Medical History Heart murmur History of kidney stones Emotional disorder Seasonal allergies Asthma Home Medications ?Medication ?Instructions ?Recorded ?Last Taken ?Type NK 01/20/25 Unknown History Allergy/AdvReac Type Severity Reaction Status Date / Time dexamethasone (From Decadron) Allergy Rash Verified 12/27/24 16:35 Penicillins Allergy Shortness Verified 12/27/24 15:11 of breath Family History Grandmother Colon cancer Other Alcohol abuse Anemia Anxiety Breast cancer COPD (chronic obstructive pulmonary disease) Cancer Liver disease Myocardial infarction Osteoporosis Seizures Social History Smoking Status: Heavy Smoker (>10/day) Electronic Cigarette Use: with nicotine alcohol intake: never substance use type: former substance user and prescription drug what type of physical activity do you participate in: none ROS ROS ED ROS Narrative Denies recent illness. Constitutional Constitutional ED: Denies fever(s) Eyes Eyes: Denies blurry vision ENT ENT ED: Denies ear pain Cardiovascular Cardiovascular: Denies chest pain or palpitations Respiratory/Chest Respiratory/Chest: Denies cough or dyspnea Gastrointestinal Gastrointestinal: Denies abdominal pain Genitourinary Genitourinary ED: Denies dysuria or hematuria Musculoskeletal Musculoskeletal: Denies back pain or myalgias Integumentary Denies abscess Neurologic Neurologic: Denies headache(s) Psychiatric Psychiatric: Denies anxiety or depression Endocrine Endocrinology: Denies cold intolerance Hematologic/Lymphatic Hematologic/Lymphatic: Denies easy bleeding, easy bruising or lymphadenopathy Allergic/Immunologic Allergic/Immunologic ED: Denies mouth swelling, tongue swelling or urticaria EXAM Physical Exam Narrative Exam Narrative: 29-year-old male sitting upright in bed. Vital signs stable afebrile. No acute distress. Mother at bedside. H EENT exam pupils round react light. Moist mucous membranes. No traumato scalp. Neck nontender. Back nontender. Lungs clear. Heart regular rhythm. No murmur. Chest wall ribs nontender. Abdomen soft nontender. Moving all 4 extremities. Neurovascularly intact. Right upper both lower nontender normal range of motion small abrasion dorsal right hand. Full flexion extension. Left hand dorsum significant swelling. Tenderness along the metacarpals of the index through small finger. Full flexion extension. Normal touch sensation cap refill. Skin is intact. Wrist and forearm nontender. Palpable radial pulse. Neurologically is awake alert. GCS 15. Const Vital Signs: 01/20/25 19:07 Temperature 98.4 F Temperature Source Oral Pulse Rate 64 Respiratory Rate 16 Blood Pressure 107/70 Blood Pressure Mean 82 Pulse Ox 100 Oxygen Delivery Method Room Air Positive well nourished and well developed; Negative for obese, cachectic, contractures or unkempt General Appearance ED: well developed and NAD; Negative for unkempt, cachectic, contractures, cyanotic or diaphoretic Nutritional Appearance: Negative for cachectic or obese HEENT Reports moist mucous membranes normocephalic and atraumatic Eyes PERRL and EOMs intact bilaterally Neck full ROM and supple Chest Wall inspection of chest normal and palpation of chest normal Resp normal respiratory effort and clear to auscultation bilaterally Cardio regular rate, regular rhythm, S1 normal heart sound, S2 normal heart sound and no murmurs GI non-tender, non-distended and no masses Auscultation: normoactive bowel sounds Palpation: soft; Negative for tender, guarding or rebound tenderness present Back/Spine no CVA tenderness Extremity full ROM; Negative for normal to inspection Extremity Narrative: Left hand dorsum swollen. Tender along the distal aspect of the metacarpals of the index through small fingers. Skin intact. Full flexion extension. Normal cap refill and touch sensation. Normal radial pulse. Skin intact. Small abrasion dorsum right hand. Nontender. Normal range of motion. General Extremety ED: Yes edema General Extremity: edema Neuro oriented x3, CN's II-XII intact bilaterally, moves all extremities, no focal motor deficits and no sensory deficits noted Sensorium / Orientation: alert, oriented to person, oriented to place and oriented to time Motor Exam: strength 5/5 throughout Psych mental status grossly normal Appearance: Negative for unkempt Skin Lesions: no lesions Rashes: no rashes Trauma: abrasion MDM MDM MDM Narrative Medical decision making narrative: 29-year-old male injured his left hand today. X-ray shows minimally displaced comminuted fracture of the left small and ring fingers at the distal metacarpal. Patient washed his hand off. I placed a well-padded AP Ortho-Glass splint. He tolerated well. He did not want any pain medication. I use Motrin Tylenol at home. Ice and elevate. Follow-up with orthopedics. History & Record Review Discussion w/independent historian: Patient Additional record(s) reviewed:: Prior inpatient record, Prior outpatient record, Prior ED visit and Prior labs Lab Data Labs: Left hand x-ray, 3 views, interpreted both by myself and the radiologist. Shows comminuted mildly displaced fractures of the distal ring and small metacarpals. Soft tissue swelling. Radiography Diagnostic Testing: Clinical Impression(s) from Imaging Studies Hand X-Ray 01/20/25 19:10 IMPRESSION: Comminuted and displaced fractures of the left 4th and 5th distal metacarpals with associated soft tissue swelling. Reading Location: [facility] Discharge Plan Triage Chief Complaint: Upper Extremity Injury ED Provider: Isma Campbell Dx/Rx/DC Orders Clinical Impression: Hand fracture, left Instructions: ED Closed Hand Fracture (Adult) Prescriptions: No Action NK Primary Care Provider: Ron Viveros Referrals: Ron Viveros MD [Primary Care Provider, Internal Medicine] Flaco Pendleton MD [Med Staff - Active Staff, Orthopedics] - As soon as possible Activity Restrictions/Additional Instructions: Keep the splint on. Keep it dry and clean. Ice and elevate your hand to decrease pain and swelling. Call [facility] and follow-up within the next week. Call them Thursday morning to get an appointment. Motrin and Tylenol for pain. You have a broken small and ring finger metacarpal of your hand Print Language: Telugu Disposition Disposition: Home, Self Care
[2025-01-20 21:28] VITALS: BP 112/70; PULSE 85; RESP 18; TEMP 36.6; O2SAT 99
== END 2025-01-20 21:29 | disposition home or self-care (01) ==
PROVIDERS: Emergency Provider Emergency Medicine; PCP Internal Medicine; Visit Provider Emergency Medicine
DX: S62.635A Displaced fracture of distal phalanx of left ring finger, initial encounter for closed fracture (principal); S62.637A Displaced fracture of distal phalanx of left little finger, initial encounter for closed fracture; F17.210 Nicotine dependence, cigarettes, uncomplicated; W23.1XXA Caught, crushed, jammed, or pinched between stationary objects, initial encounter; J45.909 Unspecified asthma, uncomplicated
CPT/HCPCS: 29130; 73130; 99282